=== PATIENT | female | born 1970 | race Caucasian/White ===

== ENCOUNTER → 2017-02-19 | Outpatient (CLI) | payer OTHER ==
[~2017-02-19] MED LIST: AMITRIPTYLINE H25 M2 PO; AMITRIPTYLINE H50 M3 PO; AMITRIPTYLINE H75 M2 PO; ASPIRIN325 PO; LIORESAL 10 MG10 MG PO; MOBIC15 MG PO; NORCO 5-325 TA1 EACH PO; TOPROL XL25 MG PO; TRAMADOL 50 MG50 MG PO; TYLENOL PM EX-1 EACH PO; VITAMIN B-12500 MCG PO; VITAMIN D 5050000 I1 PO; VITAMIN D5000 UNI1 PO; ZANAFLEX4 MG PO; ZESTORETIC 20-1 EAC3 PO; ZOLOFT50 MG PO
--- NOTE | 2017-02-20 08:10 | PAINCON ---
[address] [address] PAIN MANAGEMENT CONSULTATION Name: SON PALM [facility] [id number] Admission: 02/19/17 Attend Phys: Bev James MD Discharge: Date of : 72 Report #: [id number] THIS REPORT FOR: //name// CC: Heber James DATE OF SERVICE: 02/19/2017 FOLLOWUP COMPLAINT: "Here for back pain that is radiating down into my left foot." FOLLOWUP HISTORY: The patient is a 47-year-old female who has been seen in the pain clinic because of lumbar radiculopathy. She has undergone epidural steroid injections. She continues to have pain, which she describes as problematic. She is having pain that is radiating down into her right hip, right leg and involving her foot. She had injections in the past, which were beneficial, but still they did not last as long as she would like for them to. She has had no complications from them in the past. At this juncture, she rates her pain as an 8/10. She finds that the medications are helpful and allow her to engage in activity. She feels that it makes it more "tolerable." She finds that the hydrocodone and tramadol are beneficial. Finds that baclofen and amitriptyline are helpful as well. She rates her pain as an 8/10. PHYSICAL EXAMINATION: Blood pressure 130/84, pulse 107, respiratory rate 16, room air saturation 95%, weight 265 pounds, BMI is 41, height 5 feet 7 inches, temperature is 98.4. HEENT is unremarkable. The patient complains of pain and discomfort in the low back area with some paraspinous muscle tenderness and pain in the right foot. Palpation in the right hip area indicates soreness and tenderness in the area of the trochanteric area. She has some pain and discomfort in the low back area as well. IMPRESSION: 1. Lumbar radiculopathy history with continued discomfort in the L5-S1 nerve root distribution. 2. Myofascial pain and soreness in the right iliac areas and paraspinous muscles. Tenderness in the area of the trochanteric area. 3. L4-L5 disk osteophyte complex with annular bulge. 4. Broad-based annular bulge at L4-L5 causing spinal stenosis. 5. L4-L5 posterior facet and ligamentum flavum hypertrophy. This flattens the anterior thecal sac and creates a relative spinal stenosis. RECOMMENDATIONS: We discussed treatment options with the patient. She does have some pain and discomfort in the trochanteric area. We may consider an injection in the trochanteric bursa on the right. [place] [address] PAIN MANAGEMENT CONSULTATION Name: SON PALM Room: [facility]#: [id number] Admission: 02/19/17 Attend Phys: Bev James MD Discharge: Date of : 72 Report #: [id number] on this side. She also will continue to exercise as much as possible to decrease pain, soreness and discomfort. She will take her medication as prescribed. We again described possible complications associated with long-term use of hydrocodone/opioid medications. They could include addiction tolerance. The patient states that she keeps her medications in a controlled environment. She will also continue with baclofen for muscle spasms and amitriptyline to help with pain as well as improve pain and sleep. She will call us if she has any problems. We would like to thank you for letting us participate in her care. We hope she continues to improve. <ELECTRONICALLY SIGNED> By: Bev James MD 02/20/17 0810 1306 1600N. Robby James MD /[facility]
== END ==
LOC: M.PC 02-03 09:00
DX: M54.16 Radiculopathy, lumbar region (principal); M79.1 Myalgia; M25.78 Osteophyte, vertebrae; M51.26 Other intervertebral disc displacement, lumbar region; M48.061 Spinal stenosis, lumbar region without neurogenic claudication; M46.06 Spinal enthesopathy, lumbar region

== ENCOUNTER → 2017-03-19 | Outpatient (CLI) | payer OTHER ==
--- NOTE | 2017-04-29 08:22 | PAINCON ---
[address] [address] PAIN MANAGEMENT CONSULTATION Name: SON PALM Room: [facility] MartiMariana#: [id number] Admission: 03/19/17 Attend Phys: Bev James MD Discharge: Date of : 72 Report #: [id number] THIS REPORT FOR: //name// CC: EVERETTE James DATE OF SERVICE: 03/19/2017 FOLLOWUP COMPLAINT: Here for medication renewal and "my shoulders and hip are really sore." FOLLOWUP HISTORY: The patient is a 47-year-old female, who has been followed in the pain clinic because of pain and discomfort with lumbar radiculopathy. She states that she has been working with her grandkids. She has been lifting them frequently. She has noticed some pain and discomfort in the lower portion of her right hip, which is problematic. At this juncture, she is having pain in her right shoulder, which is even worse. She is unable to lift her right arm above parallel to the floor. She is unable to comb her hair successfully. 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 She notes that the pain is quite problematic. She continues to use her hydrocodone, which she has been on for her other pain condition. Tramadol is still used, but the two of them are not successful in decreasing the pain and discomfort she has in her shoulder. Pressure over the right shoulder can cause a significant amount of pain and discomfort radiating down into the shoulder area. She continues to work out as much as possible. She has started using vitamin B12 and vitamin D for fibromyalgia. She feels that she would like to have the right shoulder injected. She still has a pain in her right hip, which on occasion causes a cramping sensation and catches. She rates it as a 9/10 at this juncture. ALLERGIES: FENTANYL, SURGICAL GAGE. CURRENT MEDICATIONS: Tylenol Extra Strength, Elavil 75 mg at bedtime, baclofen 10 mg t.i.d., vitamin D3, vitamin B12, [place] 5/325 one p.o. t.i.d., meloxicam 15 mg daily, Zanaflex 4 mg at bedtime, tramadol 50 mg t.i.d. p.r.n. pain. PHYSICAL EXAMINATION: VITAL SIGNS: Blood pressure 134/90, pulse 94, respiratory rate 16, room air saturation 96%, temperature 98.6, height 5 feet 7 inches, weight 263 pounds, BMI is 41. HEENT: Head is atraumatic. NECK: Without JVD or adenopathy. The patient has soreness to palpation in the right trapezius area as well as in the right occipital area. Rotation of her head and bending can increase the pain and discomfort in her neck and shoulder. The patient's affect was appropriate. LUNGS: [place] [address] PAIN MANAGEMENT CONSULTATION Name: SON PALM Room: [facility]#: [id number] Admission: 03/19/17 Attend Phys: Bev James MD Discharge: Date of : 72 Report #: [id number] HEART: Regular rate. Palpation over the right deltoid anterior portion cause pain and discomfort reproduces a significant component of the patient's discomfort. MUSCULOSKELETAL: Alignment is generally within normal limits and no significant kyphosis is noted. Complains of pain and discomfort in the right hip with some limitation in movement, which can cause a worsening and catching sensation in that right hip area. 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 Palpation over the biceps tendon is extremely sensitive. Palpation over the deltoid area is sensitive and reproduces a significant component of the pain and discomfort which she is experiencing. The patient is able to lift her left hand over her head, right hand to horizontal without ability to lift it any higher. Rotation inward and outward of the shoulder can cause some pain and discomfort in the deltoid and shoulder area. IMPRESSION: 1. Right shoulder myofascial pain exacerbated after lifting a child and other activities, which has worsened over the last couple of weeks. 2. Lumbar radicular history in the L5-S1 nerve root distribution and epidural steroids in the past. 3. Right hip pain, may consider an injection in the hip area in the future. 4. L4-L5 disk osteophyte complex with annular bulge. 5. Broad-based annular bulge at L4-L5 causing spinal stenosis. 6. L4-L5 posterior facet and ligamentum flavum hypertrophy. This flattens the anterior thecal sac and creates a relative spinal stenosis. RECOMMENDATIONS: We will proceed with an injection to the right shoulder area. This seems to be the pain that is causing her the most discomfort and rates it overall as a 9/10. She is limited in her ability to engage in activities with his arm. She is unable to raise it over her head. She is unable to lift or work against opposition with that arm because of the pain and discomfort. We will consider an injection in her right hip in the future if needed. The patient will also continue with hydrocodone and tramadol to help with her traditional pain. She will continue with activity to lessen the problems that one gets from fibromyalgia. We explained to her the importance of activities on a regular basis and the use of her current medical regimen. PROCEDURE NOTE: The patient was placed in the sitting position. She was on the bed at 30 degrees. Her right shoulder was sterilely prepped with a chlorhexidine solution. It was allowed to dry. Palpation in the area of the deltoid area reproduced her pain and discomfort. A 25-gauge needle was then advanced into this area. The patient states that the pain was reproduced. Total of 40 mg triamcinolone and 8 mL of 0.25% bupivacaine was injected. The patient tolerated the procedure well. There were no complications. She remained in the Pain Clinic for an appropriate amount [place] [address] PAIN MANAGEMENT CONSULTATION Name: SON PALM Room: [facility]#: [id number] Admission: 03/19/17 Attend Phys: Bev James MD Discharge: Date of : 72 Report #: [id number] up in the future as needed. We would like to thank you for letting us participate in her care. We hope she continues to improve. <ELECTRONICALLY SIGNED> By: Bev James MD 04/29/17 0822 1412 0219N. Robby James MD /nt
== END | disposition home or self-care (01) ==
LOC: M.PC 01:43
DX: M79.1 Myalgia (principal); M25.511 Pain in right shoulder; M54.16 Radiculopathy, lumbar region; M25.551 Pain in right hip; M48.061 Spinal stenosis, lumbar region without neurogenic claudication; M51.36 Other intervertebral disc degeneration, lumbar region; M25.78 Osteophyte, vertebrae; M46.96 Unspecified inflammatory spondylopathy, lumbar region; Z88.8 Allergy status to other drugs, medicaments and biological substances; Z79.891 Long term (current) use of opiate analgesic

== ENCOUNTER → 2017-04-21 | Outpatient (CLI) | payer OTHER ==
--- NOTE | 2017-04-29 08:37 | PAINCON ---
[address] [address] PAIN MANAGEMENT CONSULTATION Name: SON PALM Room: [facility] MartiMariana#: [id number] Admission: 04/21/17 Attend Phys: Bev James MD Discharge: Date of : 72 Report #: [id number] THIS REPORT FOR: //name// CC: Heber James DATE OF SERVICE: 04/21/2017 FOLLOWUP COMPLAINT: "Things are going pretty well. I have had no real changes." FOLLOWUP HISTORY: The patient is a 47-year-old female who has been followed in the pain clinic. As you recall, she has some problems with her right hip, right shoulder as well as the low back. She states that her symptomatology has pretty much remained stable since we saw her last. She has been followed in the pain clinic because of lumbar radiculopathy. She continues to note some pain and discomfort if she lifts. This exacerbates pain and discomfort in her right shoulder. She also has some pain in the right hip. She still has some difficulty combing her hair because of this pain, unable to lift her grandchildren. She continues to work. She finds that the fibromyalgia can still be problematic. She feels that the injection in the shoulder area at the last visit was helpful. Rates her pain as an 8/10 at this juncture. ALLERGIES: FENTANYL, SURGICAL GAGE. CURRENT MEDICATIONS USED: Tylenol Extra Strength, Elavil 75 mg at bedtime, baclofen 10 mg p.o. t.i.d., vitamin D, vitamin B12, [place] 5/325 one p.o. t.i.d. Meloxicam 15 mg daily, Zanaflex 4 mg at bedtime, tramadol 50 mg t.i.d. p.r.n. pain. PAIN CLINIC HISTORY: 1. 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 Height 5 feet 7 inches, weight 266 pounds, BMI is 41. 2. Vital signs: Blood pressure 140/90, heart rate 103, respiratory rate 16, room air saturation 98%, temperature 98.7. 3. Pain intensity 10/02. 4. Fall risk. The patient has not fallen since we saw her last. Has not fallen in the last 3 months. 5. The patient is not on blood thinner. 6. Hypertension. The patient is not being treated for hypertension. 7. Opioid therapy. The patient receives her medications from the pain clinic of hydrocodone 5/325 and has signed a pain clinic contract. Collection for a drug screen, dated 03/14/2015 showed hydrocodone positive in the system in her system, which can corroborates the medication she has been getting. [place] [address] PAIN MANAGEMENT CONSULTATION Name: SON PALM Room: [facility]#: [id number] Admission: 04/21/17 Attend Phys: Bev James MD Discharge: Date of : 72 Report #: [id number] RISK ASSESSMENT TOOL: 1. Pain impact score is 57/70 in regard to general activity, mood, walking ability, work, relationships with others, sleep enjoyment of life. 2. The patient denies use of recreational drugs in her drug screen is clean. 3. Tobacco: The patient denies use of tobacco. 4. Alcoholic beverages. The patient denies frequent use of alcoholic beverages. PHYSICAL EXAMINATION: GENERAL: The patient is a well-developed female, appears her appropriate age. Orientation: The patient is alert and oriented x 3. Affect: The patient's affect is appropriate. HEENT: The patient is normocephalic, atraumatic. Extraocular eye muscles intact. Hearing is within normal limits. No nasal congestion or complaints. Buccal membranes are moist. NECK: Without adenopathy or bruits. LUNGS: Clear to auscultation. The patient has some soreness in the area of the right trapezius as well as some in the occipital areas. Rotation of her arm above her head causes some increased pain and discomfort. Appears somewhat improved over the last visit. Lungs are clear to auscultation. HEART: Regular rate. MUSCULOSKELETAL: Alignment is generally within normal limits without significant kyphosis. The patient continues to complain of some pain and discomfort in the right hip and some limitation in the movement. Muscle strength in the upper extremities is judged to be basically 5/5. Some decreased strength on the right secondary to shoulder pain. Continues to be able to lift her left hand overhead with some pain and discomfort and able to lift her shoulder and right arm to just above the horizon. IMPRESSION: 1. Right shoulder pain, which improved after the last trigger point injection, but still has some problems lifting this and with activities of daily living. 2. Lumbar radicular history in the L5-S1 nerve root distribution and has had epidural steroid injection in the past. 3. Right hip pain, may consider an injection in this area in the past, if needed. 4. L4-L5 disk osteophyte complex with annular bulge. 5. Broad-based annular bulge at L4-L5 causing spinal stenosis. 6. L4-L5 posterior facet and ligamentum flavum hypertrophy. There is flattening of the anterior thecal sac creates a relative spinal stenosis. RECOMMENDATIONS: We discussed treatment options with the patient. We will continue with her current medical regimen. She feels that things overall are going reasonably well. The weather is warming up. She continues to monitor her right shoulder and try to keep from exacerbating [place] [address] PAIN MANAGEMENT CONSULTATION Name: SON PALM Room: [facility]#: [id number] Admission: 04/21/17 Attend Phys: Bev Jmaes MD Discharge: Date of : 72 Report #: [id number] feels that her medications continue to be helpful. She is keeping her medications in a guarded area. She appears to be taking the medication as prescribed. Her drug screen was positive for the correct items. We will continue with her current medication regimen. A script for renewal of her meloxicam, tizanidine, hydrocodone, tramadol, amitriptyline and baclofen were rewritten. DICTATION ENDS HERE <ELECTRONICALLY SIGNED> By: Bev James MD 04/29/17 0837 1329 [id number]. Robby James MD /[facility]
== END ==
LOC: M.PC 04-16 09:20
DX: M48.061 Spinal stenosis, lumbar region without neurogenic claudication (principal); M54.16 Radiculopathy, lumbar region; M25.78 Osteophyte, vertebrae; M46.06 Spinal enthesopathy, lumbar region

== ENCOUNTER → 2017-05-19 | Outpatient (CLI) | payer OTHER ==
--- NOTE | 2017-05-27 08:21 | CON ---
[address] [address] CONSULTATION Name: SON PALM Room: [facility] SHERRI Burr.#: [id number] Admission: 05/19/17 Attend Phys: Bev James MD Discharge: Date of : 72 Report #: [id number] THIS REPORT FOR: //name// CC: Heber James DATE OF SERVICE: 05/19/2017 FOLLOWUP COMPLAINT: Here for medication renewal. FOLLOWUP HISTORY: The patient is a 47-year-old female who has been followed in the pain clinic because of chronic pain. As you recall, she has some problems with her right hip, right shoulder as well as the low back. She continues to have symptoms with pain and discomfort. She has been followed in the pain clinic because of lumbar radiculopathy. She continues to have pain, particularly if she lifts items. She notes that her pain is worse with certain activities. Has pain in her right shoulder. There is pain in her right hip. She has difficulty climbing because of this pain. Has difficulty lifting her grandchildren. She continues to work. She has fibromyalgia. She would like to have her medications renewed. Overall, she feels that her medications are helpful and she rates her pain as 8/10 today. She would like to continue with their use. She is taking them as prescribed. No problems with confusion. ALLERGIES: FENTANYL, SURGICAL GAGE. HOME MEDICATIONS: Include Tylenol Extra Strength, Elavil 25 mg at bedtime, baclofen 10 mg 1 p.o. t.i.d., vitamin D, vitamin B12, [place] 5/325 one p.o. t.i.d., Meloxicam 15 mg daily, Zanaflex 4 mg at bedtime, tramadol 50 mg 1 p.o. t.i.d. for pain PAIN CLINIC ASSESSMENT: 1. The patient has some osteoarthritic changes involving her shoulder as well as some hip well. 2. Height 5 feet 7 inches, weight 266 pounds, BMI is 41. 3. Vital signs: Blood pressure is 161/109, heart rate 97, respiratory rate 16, room air saturation is 97%, temperature 98.7. Pain intensity is an 8/10. 4. The patient has not fallen in the last 3 months. 5. The patient is not on a blood thinner. 6. Hypertension. The patient is not being treated for hypertension. 7. Opioid therapy. The patient is receiving medications through the pain clinic for hydrocodone 5/325. 8. Risk assessment tool; impact 57/70. 9. The patient denies use of recreational drugs. 10. The patient denies use of tobacco. 11. [place] [address] CONSULTATION Name: SON PALM Room: [facility]#: [id number] Admission: 05/19/17 Attend Phys: Bev James MD Discharge: Date of : 72 Report #: [id number] PHYSICAL EXAMINATION: GENERAL: The patient is a well-developed female. She appears her stated age. She is oriented x 3. AFFECT: The patient's affect is appropriate. HEENT: The patient is normocephalic, atraumatic. Extraocular eye muscles intact. Hearing is within normal limits. No nasal congestion or complaints. Mucous membranes moist. NECK: Without adenopathy or bruits. CHEST: Lungs clear to auscultation. SKIN: The patient has some pain in the right trapezius area as well as in the occipital areas. Rotation of her arm above her head caused some increased pain and discomfort. Appears somewhat improved from the last visit. LUNGS: Clear to auscultation. HEART: Regular rate and effort. MUSCULOSKELETAL: The patient's alignment is within normal limits without significant kyphosis. The patient continues to have pain and discomfort in the right hip as well as some limitation in motion. Muscle strength in the upper extremities is judged to be 5/5. She has decreased strength in the right secondary to right shoulder pain. She continues to lift her hand above her head with some pain and discomfort and able to lift her shoulder and right arm above the horizon. IMPRESSION: 1. Right shoulder pain with improvement after last trigger point injections. 2. Lumbar radiculopathy with history L5-S1 nerve root distribution and had an epidural steroid injection in the past. 3. Right hip pain. May consider injection in the future. 4. L4-L5 disk osteophyte complex with annular bulge. 5. Broad-based annular bulge at L4-L5 causing spinal stenosis. 6. L4-L5 posterior facet ligamentum flavum hypertrophy. There is flat anterior thecal sac relative with spinal stenosis. RECOMMENDATIONS: We will continue with the patient's current medical regimen. A script for her medications has been written. She will follow up in the future as needed. She will call us if she has any problems with her medications. She will keep her medicine in a guarded area. We would like to thank you for letting us participate in her care. We hope she continues to improve. <ELECTRONICALLY SIGNED> By: Bev James MD 05/27/17 0821 2100 0509N. Robby James MD /PMT
== END ==
LOC: M.PC 01:46
DX: M25.78 Osteophyte, vertebrae (principal); M54.16 Radiculopathy, lumbar region; M48.061 Spinal stenosis, lumbar region without neurogenic claudication; M46.06 Spinal enthesopathy, lumbar region; M25.511 Pain in right shoulder; M25.551 Pain in right hip

== ENCOUNTER → 2017-06-18 | Outpatient (CLI) | payer OTHER ==
--- NOTE | 2017-06-24 08:18 | PAINCON ---
[address] [address] PAIN MANAGEMENT CONSULTATION Name: SON PALM Room: [facility] SUNIL MartiMelissa.#: [id number] Admission: 06/18/17 Attend Phys: Bev James MD Discharge: Date of : 72 Report #: [id number] THIS REPORT FOR: //name// CC: Heber James DATE OF SERVICE: 06/18/2017 FOLLOWUP COMPLAINT: Here for medication renewal. FOLLOWUP HISTORY: The patient is a 47-year-old female. As you recall, she has been followed in the pain clinic because problems involving her right hip as well as some shoulder problems and discomfort in her low back. She continues to glean benefit from her current medication regimen of baclofen, [place], meloxicam and Zanaflex. She notes that her pain becomes more problematic when she engages in some activities of daily living such as walking, standing, sitting, going up and down stairs, bending and lifting and has noted some improvement with use of her medications, heat, cold and rest. She has returned today for renewal of her medications. She rates her pain as a 9/10 today. The weather has changed and she has noticed an increased amount of discomfort. She has moved into her daughter's house. She and her are relocating. Hopefully, this will be their last move. As a result of all this added activity and stress, she has noted worsening of her pain. ALLERGIES: F[place]ANYL, SURGICAL GAGE. CURRENT MEDICATIONS: Tylenol Extra Strength, Elavil 75 mg at bedtime, baclofen 10 mg p.o. t.i.d., vitamin D, vitamin B12, [place] 5/325 one p.o. t.i.d., Meloxicam 15 mg daily, Zanaflex 4 mg at bedtime, tramadol 50 mg t.i.d. p.r.n. pain. PAIN CLINIC HISTORY: 1. The patient does have osteoarthritis involving her shoulder, hip areas. 2. Height 5 feet 7 inches, weight 267 pounds, BMI is 41. 3. Vital Signs: Blood pressure 151/102, heart rate 120, respiratory rate 16, room air saturation 97%, temperature 99.6. 4. Pain score. The patient rates her pain as a 9/10. 5. Fall. The patient has not fallen in the last 3 months. 6. Blood thinner. The patient is not on a blood thinner. 7. Hypertension. The patient is not being treated for hypertension. 8. Opioid therapy greater than 6 weeks. The patient is on a contract with the Pain Clinic, is to get her medications only from 1 source. 9. Risk assessment tool. 10. Functional assessment tool. 11. Recreational drug use. The patient denies [place] [address] PAIN MANAGEMENT CONSULTATION Name: SON PALM Room: [facility]#: [id number] Admission: 06/18/17 Attend Phys: Bev James MD Discharge: Date of : 72 Report #: [id number] 12. Tobacco. The patient denies use of tobacco. 13. Alcohol use. The patient denies use of alcoholic beverages PHYSICAL EXAMINATION: GENERAL: The patient is a well-developed white female. She appears her stated age. She is alert and oriented x 3. Her affect is appropriate. Speech is fluent. HEENT: Normocephalic, atraumatic. Extraocular eye muscles intact. Sclerae nonicteric Hearing is within normal limits. Nasal congestion is not problematic. Mucous membranes are moist. NECK: Without adenopathy or bruits. CHEST: Clear to auscultation. The patient has some discomfort in the right trapezius area and in the occipital areas. Rotation of her arms above her head can cause some increased pain and discomfort. LUNGS: Clear to auscultation. HEART: Regular rate. MUSCULOSKELETAL: Musculature alignment is generally within normal limits without significant kyphosis. The patient sometimes complains of pain and discomfort in her right hip and some limitations in movement. Muscle strength in the upper extremities, judged to be 5/5. Some decreased strength in the right secondary to shoulder pain. The patient continues to have pain and discomfort when she lifts her left hand overhead. IMPRESSION: 1. Right shoulder pain with improvement after trigger point injections, but continues to have pain and discomfort in the shoulder girdle area. 2. Lumbar radicular history with a L5-S1 nerve root distribution. The patient has had epidural steroid injections in the past. 3. Right hip pain. May consider injection in this area in the future as needed. 4. L4-L5 disk osteophyte complex with annular bulge. 5. Broad based annular bulge at L4-L5 causing spinal stenosis. 6. L4-L5 posterior facet and ligamentum flavum hypertrophy. There is flattening of the anterior thecal sac and creating a relative spinal stenosis. RECOMMENDATIONS: We have discussed treatment options with the patient. We will continue with her current medications. We will continue to pursue a conservative approach. We have discussed the use of opioid medications. The patient has been watching the news and is aware of the conversation regarding opioid medications in chronic pain. She feels that her medications are helpful. She keeps her medications guarded. Feels that they continued to enable her to [address] [address] PAIN MANAGEMENT CONSULTATION Name: NÉSTORSON Room: [facility] SHERRI Butt#: [id number] Admission: 06/18/17 Attend Phys: Bev James MD Discharge: Date of : 72 Report #: [id number] engage in activities, she would not be able to without their use. She would like to continue with the medications. <ELECTRONICALLY SIGNED> By: Bev James MD 06/24/17817 1308 192N. Robby James MD /PMT
== END ==
LOC: M.PC 06-16 09:40
DX: M25.511 Pain in right shoulder (principal); M54.16 Radiculopathy, lumbar region; M25.551 Pain in right hip; Z88.5 Allergy status to narcotic agent; Z88.8 Allergy status to other drugs, medicaments and biological substances

== ENCOUNTER → 2017-07-21 | Outpatient (CLI) | payer OTHER ==
--- NOTE | 2017-08-05 13:59 | PAINCON ---
[address] [address] PAIN MANAGEMENT CONSULTATION Name: SON PALM Room: [facility] SHERRI Filomena#: [id number] Admission: 07/21/17 Attend Phys: Bev James MD Discharge: Date of : 72 Report #: [id number] THIS REPORT FOR: //name// CC: Heber James DATE OF SERVICE: 07/21/2017 FOLLOWUP COMPLAINT: "We are hoping to move out of our daughter's house soon, ours is about finished." FOLLOWUP HISTORY: The patient is a 47-year-old female, who has been followed in the pain clinic. As you recall, she has problems with her right hip, shoulder as well as her low back. She finds that her medications continue to be helpful. She is living with her daughter and with her grandkids. She states that her house is almost finished. She has been quite active and notes that that exacerbates her pain and discomfort. Still feels that the baclofen, [place], meloxicam as well as Zanaflex are efficacious and would like to continue with them. She does not have any problems with that. Notes that climbing stairs and other activities can worsen her discomfort. Overall, things are going reasonably well. The patient would like to have her medications renewed. States that she keeps her medications in a controlled environment given that she is living with her daughter and have small kids around. Feels that the medications continue to be helpful. Has had some worsening of pain and discomfort with the changes in the air pressure associated with constant weather changes at this juncture. Weather pattern has changed in the last few days, temperature has been about 100 degrees. ALLERGIES: FENTANYL AND SURGICAL GAGE. RECOMMENDATION: Tylenol Extra Strength, Elavil 75 mg at bedtime, baclofen 10 mg p.o. t.i.d., vitamin D, vitamin B12, [place] 5/325 one p.o. t.i.d., Meloxicam 15 mg daily, Zanaflex 4 mg at bedtime, and tramadol 50 mg t.i.d. p.r.n. pain. PAIN CLINIC ASSESSMENT: 1. The patient does have osteoarthritis involving her shoulders, hips. 2. Height 5 feet 7 inches, weight 270 pounds. BMI is 42. 3. Vital signs: Blood pressure 146/91, heart rate 104, respiratory rate 16, room air saturation 94%, temperature 99.0. Pain intensity 8/10. 4. Fall risk: The patient has not fallen in the last 3 months. 5. Blood thinner: The patient is not on a blood thinner. 6. Hypertension. The patient has not been treated for hypertension. 7. Opioid therapy greater than 6 weeks. The patient is on an opioid contract with the pain clinic and gets her medication from one source. 8. [place] [address] PAIN MANAGEMENT CONSULTATION Name: SON PALM Room: [facility]#: [id number] Admission: 07/21/17 Attend Phys: Bev James MD Discharge: Date of : 71 Report #: [id number] 9. Functional assessment tool. 10. Recreational drug use: The patient denies use of recreational drugs. 11. Tobacco: The patient denies use of tobacco. 12. Alcohol: The patient denies use of alcoholic beverages. PHYSICAL EXAMINATION: GENERAL: The patient is a well-developed white female, appears her stated age. She is alert and oriented x 3. Her affect is appropriate. Speech is fluent. HEENT: Normocephalic, atraumatic. Extraocular eye muscles intact. Sclerae nonicteric. Hearing is within normal limits. Nasal mucosa is moist. NECK: Without adenopathy or bruits. CHEST: Clear to auscultation. The patient has some discomfort in her right trapezius area and in the occipital areas. Rotation of her arms above her head caused some increased pain and discomfort. LUNGS: Clear to auscultation. HEART: Regular rate. S1, S2. ABDOMEN: Nontender. MUSCULOSKELETAL: Generally within normal limits without significant kyphosis, scoliosis or lordosis. The patient has pain, which limits her motion secondary to the right hip pain. Muscle strength in the upper extremity is judged to be 5/5. Some decreased strength in the right shoulder secondary to pain. Continues to have pain and discomfort when she lifts her hands over her head. IMPRESSION: 1. Right shoulder pain with improvements after trigger point injections in the past. Some discomfort in the right shoulder girdle area. 2. Lumbar radiculopathy, history with an L5-S1 nerve root distribution. 3. Right hip pain. 4. L4-L5 disk osteophyte complex with annular bulge. 5. Broad-based annular bulge at L4-L5 causing spinal stenosis. 6. L4-L5 posterior facet and ligamentum flavum hypertrophy. There is flattening of the anterior thecal sac, creating a relative spinal stenosis. RECOMMENDATIONS: We discussed treatment options with the patient. We will continue with her current medications. A script for her medications has been provided. She will continue with tramadol 50 mg t.i.d., hydrocodone 5/325 one p.o. t.i.d., amitriptyline 30 mg 1 tablet or 75 mg at bedtime and baclofen 10 mg 1 p.o. t.i.d. The patient also has been given a script for Mobic and tizanidine 4 mg. She will call us if she has any problems with her medications. Hopefully, she starts to feel better after she moves out of her daughter's house. States that the bathroom is upstairs. [place] [address] PAIN MANAGEMENT CONSULTATION Name: SON PALM Room: [facility]#: [id number] Admission: 07/21/17 Attend Phys: Bev James MD Discharge: Date of : 71 Report #: [id number] own house, which is on 1 level. We would like to thank you for letting us participate in her care. We hope she continues to improve. <ELECTRONICALLY SIGNED> By: Bev James MD 08/05/17 1359 [id number] 1839N. Robby James MD /[facility]
== END ==
LOC: M.PC 07-16 09:40
DX: M54.16 Radiculopathy, lumbar region (principal); M48.061 Spinal stenosis, lumbar region without neurogenic claudication; M25.78 Osteophyte, vertebrae; M46.06 Spinal enthesopathy, lumbar region; M25.551 Pain in right hip; M25.511 Pain in right shoulder

== ENCOUNTER → 2017-08-25 | Outpatient (CLI) | payer OTHER ==
--- NOTE | 2017-08-27 08:42 | PAINCON ---
[address] [address] PAIN MANAGEMENT CONSULTATION Name: SON PALM Room: [facility] SUNIL Leno.#: [id number] Admission: 08/25/17 Attend Phys: Bev James MD Discharge: Date of : 72 Report #: [id number] THIS REPORT FOR: //name// CC: Heber James DATE OF SERVICE: 08/25/2017 FOLLOWUP COMPLAINT: "Here for medications. I am still having some low back, right hip and shoulder pain." FOLLOWUP HISTORY: The patient is a 47-year-old female who has been seen in the pain clinic because of chronic pain involving her back, shoulder, hip. She has noted some escalation of her pain and discomfort. She and her are moving. They have been packing and boxing items. She has noted some increased pain and discomfort in the right shoulder area. In the past, she has undergone trigger point injection and noted improvement. She returns today indicating that her pain continues to be problematic. It involves her right arm with some numbness, tingling. Finds that it is more uncomfortable with activities of daily living secondary to the increased use with her moving. Rates her pain as an 8/10. Things that exacerbate her discomfort are activities, walking, sitting, standing, going from a sitting to a standing position, lifting and bending. Feels that factors that help are continued use of her medications, use of hot and cold modalities as well as rest. ALLERGIES: FENTANYL AND SURGICAL GAGE. MEDICATIONS: Tylenol Extra Strength, Elavil 75 mg at bedtime, baclofen 10 mg p.o. t.i.d., vitamin D, vitamin B12, [place] 5/325 one p.o. t.i.d., Meloxicam 15 mg, Zanaflex 4 mg at bedtime and tramadol 50 mg t.i.d. p.r.n. pain. PAIN CLINIC ASSESSMENT: 1. The patient does have osteoarthritic changes involving her shoulders, hips. Right shoulder is more problematic today. 2. Height 5 feet 7 inches, weight 266 pounds, BMI is 41. 3. Vital signs: Blood pressure 114/82, heart rate 106, respiratory rate 16, room air saturation 95%, temperature 98.8. 4. Pain risk/intensity 10/02. 5. Fall risk. The patient has not fallen in the last 3 months. 6. Blood thinner. The patient is not on the blood thinning medication. 7. Hypertension. The patient is not being treated for hypertension. 8. Opioid therapy greater than 6 weeks. The patient is on an opioid contract with the pain clinic and gets her medication from one source. 9. Risk assessment tool. 10. Functional assessment tool. 11. Recreational drug use. The patient denies [place] [address] PAIN MANAGEMENT CONSULTATION Name: SON PALM Room: [facility]#: [id number] Admission: 08/25/17 Attend Phys: Bev James MD Discharge: Date of : 71 Report #: [id number] 12. Tobacco: The patient denies use of tobacco. 13. Alcohol: The patient denies use of alcoholic beverages. PHYSICAL EXAMINATION: GENERAL: The patient is a well-developed, well-nourished white female, appears her stated age. She is alert and oriented x 3. Her affect is appropriate. Speech is fluent. HEENT: Normocephalic, atraumatic. Extraocular eye muscles intact. Sclerae nonicteric. Hearing is within normal limits. Nasal mucosa is moist. NECK: Without adenopathy or bruits. CHEST: Clear to auscultation. The patient does have some discomfort in the right shoulder as well as palpation in the right acromioclavicular area. Palpation does reproduce her discomfort. HEART: Regular rate. S1, S2. ABDOMEN: Nontender. MUSCULOSKELETAL: Generally within normal limits without significant kyphosis, scoliosis or lordosis. The patient has pain that limits her movement in her right hip. Also, has muscle strength in the upper area judged to be 4+/5 in the right shoulder secondary to pain. IMPRESSION: 1. Right shoulder pain, which has improved in the past after a trigger point injection. Has noted some return and would like to proceed with another injection today. 2. Lumbar radicular history with a L5-S1 nerve root distribution. 3. Right hip pain. 4. L4-L5 disk osteophyte complex with annular bulge. 5. Broad-based annular bulge at L4-L5 causing spinal stenosis. 6. L4-L5 posterior facet and ligamentum flavum hypertrophy. There is flattening of the anterior thecal sac, creating a relative spinal stenosis. RECOMMENDATIONS: We discussed the treatment options with the patient. Risks and benefits of a trigger point injection to the affected right shoulder were discussed. They include infection, improvement in pain, no improvement in pain or worsening of the pain. The patient elects to proceed. A script for her medications have been written. They include tramadol, hydrocodone, ____, amitriptyline, baclofen, Mobic, tizanidine. She has elected to proceed with the procedure. PROCEDURE NOTE: The patient was taken to the procedure area. She was assisted in getting on the table. Her shoulder was sterilely prepped with a chlorhexidine solution and allowed to dry. Palpation in the area of the deltoid near the acromioclavicular area was evaluated. The patient states that there was a definite trigger point in this area. A 25-gauge needle was then advanced into the area. A reproduction of the pain was noted. A total of 40 mg of triamcinolone and 8 mL of 0.25% bupivacaine was injected[place] [address] PAIN MANAGEMENT CONSULTATION Name: SON PALM Room: [facility]#: [id number] Admission: 08/25/17 Attend Phys: Bev James MD Discharge: Date of : 72 Report #: [id number] the procedure well. She was taken to the recovery room where she remained for an appropriate amount of time. She will follow up in the future as needed. We would like to thank you for letting us participate in her care. We hope she continues to improve. <ELECTRONICALLY SIGNED> By: Bev James MD 08/27/17 0842 1502 [id number]. Robby James MD /AXEL
== END | disposition home or self-care (01) ==
LOC: M.PC 08-18 10:00
DX: M79.1 Myalgia (principal); M19.011 Primary osteoarthritis, right shoulder; Z79.899 Other long term (current) drug therapy; M51.16 Intervertebral disc disorders with radiculopathy, lumbar region; Z98.890 Other specified postprocedural states; F11.20 Opioid dependence, uncomplicated; I10 Essential (primary) hypertension; Z68.41 Body mass index [BMI] 40.0-44.9, adult; Z88.8 Allergy status to other drugs, medicaments and biological substances

== ENCOUNTER → 2017-10-15 | Outpatient (CLI) | payer OTHER ==
--- NOTE | 2017-10-21 16:41 | PAINCON ---
[address] [address] PAIN MANAGEMENT CONSULTATION Name: SON PALM Room: [facility].Romero.#: [id number] Admission: 10/15/17 Attend Phys: Bev James MD Discharge: Date of : 72 Report #: [id number] THIS REPORT FOR: //name// CC: Heber James DATE OF SERVICE: 10/15/2017 PRIMARY CARE PHYSICIAN: Heber Garcia MD CHIEF COMPLAINT: "Going to have surgery on my right shoulder." FOLLOWUP HISTORY: The patient is a 47-year-old female who has been followed in the pain clinic. She has a number of pain areas. One includes her back, hip and her right shoulder. She has had injections in her right shoulder because of the pain and discomfort. She recently has seen an orthopedic surgeon. She is contemplating right shoulder arthroscopy in the next week. It is felt that she has suffered from some arthritic changes as well as some bursitis. She feels overall that her medications are helpful. Rates her pain as an 8/10. She is having no complications from use of her medications. Feels that the [place], tramadol, meloxicam and Zanaflex are helpful. She is not having any GI complaints at this juncture. She feels that baclofen and amitriptyline are helpful as well. Pain is worse with walking, sitting, standing and other activities such as bending and twisting. Cold and heat on her shoulder can be helpful. ALLERGIES: FENTANYL, SURGICAL GAGE. CURRENT MEDICATIONS: Tylenol Extra Strength, Elavil 75 mg at bedtime, baclofen 10 mg p.o. t.i.d., vitamin D, vitamin B12, [place] 5/325 one p.o. t.i.d., Meloxicam 15 mg, Zanaflex 4 mg at bedtime, tramadol 50 mg t.i.d. PAIN CLINIC ASSESSMENT: 1. The patient has osteoarthritic changes in her shoulder, some discomfort in her hips. Right shoulder remains problematic. 2. Height 5 feet 7 inches, weight 262 pounds, BMI 41.4. 3. Vital signs: Blood pressure 148/76, heart rate 86, respiratory rate 16, room air saturation is 98.4. Pain score 8/10. 4. Fall risk. The patient has not fallen in the last 3 months. 5. Blood thinner. The patient is not on a blood thinning medication. 6. Hypertension. The patient has not been treated for hypertension. 7. Opioid therapy greater than 6 weeks. The patient receives tramadol medication from the pain clinic. 8. Risk assessment tool. 9. [place] [address] PAIN MANAGEMENT CONSULTATION Name: SON PALM Room: [facility]#: [id number] Admission: 10/15/17 Attend Phys: Bev James MD Discharge: Date of : 72 Report #: [id number] 10. Recreational drug use. The patient denies use of recreational drugs. 11. Tobacco: The patient denies use of tobacco. 12. Alcohol: The patient denies use of alcoholic beverages. PHYSICAL EXAMINATION: GENERAL: The patient is a well-developed, well-nourished, white female. Appears her stated age. She is alert and oriented x 3. Her affect is appropriate. Speech is fluent. HEENT: Normocephalic, atraumatic. Extraocular eye muscles intact. Sclerae nonicteric. Hearing is within normal limits. Mucous membranes are moist. NECK: Without adenopathy or bruits. CHEST: Clear to auscultation. The patient does have some discomfort in her right shoulder. Some decreased range of motion. Pain in the area of the right acromioclavicular area. Palpation causes discomfort. HEART: Regular rate. S1, S2. ABDOMEN: Nontender. MUSCULOSKELETAL: Without significant scoliosis, kyphosis or lordosis. The patient does have some limitation of movement in her right hip. Muscle strength is judged to be 5/5 on the left side, 4+/5 in the right shoulder area secondary to pain. IMPRESSION: 1. Right shoulder pain, which is improved after trigger point injections, but continued to be problematic. The patient is contemplating undergoing surgery. 2. Lumbar radicular pain history at L5-S1. 3. Right hip pain. 4. L4-L5 disk osteophyte complex with annular bulge. 5. Broad-based annular bulge at L4-L5 causing spinal stenosis. 6. L4-L5 posterior facet and ligamentum flavum hypertrophy. There is flattening of the anterior thecal sac, creating a relative spinal stenosis. RECOMMENDATIONS: We discussed treatment options with the patient. We will continue with her current medical regimen. A script for all of her medications of tramadol, meloxicam, Narcan, amitriptyline and baclofen have been renewed. The patient will follow up in the near future as needed. The patient states that she is going to undergo surgery on her right shoulder in the next few weeks. Hopefully, she will notice an improvement in her pain and quality of life. We would like to thank you for letting us participate in her care. We hope she continues to improve. <ELECTRONICALLY SIGNED> By: Bev James MD 10/21/17 7171 1232 [id number]. Robby James MD /[facility]
== END ==
LOC: M.PC 09-22 05:16
DX: M48.061 Spinal stenosis, lumbar region without neurogenic claudication (principal); M25.78 Osteophyte, vertebrae; M25.511 Pain in right shoulder; M25.551 Pain in right hip; M54.5 Low back pain

== ENCOUNTER → 2017-11-12 | Outpatient (CLI) | payer OTHER ==
--- NOTE | 2017-12-07 10:00 | PAINCON ---
[address] [place] [address] PAIN MANAGEMENT CONSULTATION Name: SON PALM Room: [facility] SHERRI KiddMariana#: [id number] Admission: 11/12/17 Attend Phys: Bev James MD Discharge: Date of : 72 Report #: [id number] THIS REPORT FOR: //name// CC: Heber James DATE OF SERVICE: 11/12/2017 FOLLOWUP COMPLAINT: Here for medication renewal. I have had surgery on my right shoulder. The tendons has been torn. FOLLOWUP HISTORY: The patient is a 47-year-old female who has been followed in the pain clinic. As you recall, she has some problems with her back, hip and has had particularly difficulty with her right shoulder. She states that she underwent a right shoulder surgery recently. It was told that there is some pathology in her shoulder. She had more arthritic changes than they had expected. She also developed a blood clot in her right arm. She has had some swelling in this area. Things seem to be improving. Has pain in her shoulder and has limited ability to abduct her shoulder to horizontal with the floor. She states that she continues to work at moving it. We discussed possibility of a frozen shoulder. She states that she continues to use her shoulder on a regular basis. She rates her pain as a 9/10 at this point. She would like to increase her tramadol from t.i.d. to q.i.d. She feels that would be helpful. She has had no complication from her medications. She feels that they continued to be beneficial at this time. ALLERGIES: FENTANYL, SURGICAL GAGE. MEDICATIONS: Tylenol Extra Strength, Elavil 75 mg at bedtime, baclofen 10 mg t.i.d., vitamin D, vitamin B12, [place] 5/325 one p.o. t.i.d., Meloxicam 15 mg, Zanaflex 4 mg at bedtime, Tramadol 50 mg t.i.d. PAIN CLINIC ASSESSMENT: 1. The patient has some arthritic changes/osteoarthritic changes in her right shoulder. Has recently had shoulder surgery. 2. Height 5 feet 7 inches, weight 265 pounds, BMI is 41. 3. Vital signs: Blood pressure 138/94, heart rate is 60, respiratory rate 16, room air saturation 96%, temperature 98.7. 4. Pain score 9/10. 5. Fall risk. The patient has not fallen in the last 3 months. 6. Blood thinner. The patient is not on a blood thinning medication. 7. History of hypertension. The patient is being treated for hypertension. 8. Opioid therapy greater than 6 weeks. The patient has received medication to the pain clinic. 9. [place] [address] PAIN MANAGEMENT CONSULTATION Name: SON PALM Room: [facility]#: [id number] Admission: 11/12/17 Attend Phys: Bev James MD Discharge: Date of : 72 Report #: [id number] 10. Recreational drug use: The patient denies use of recreational drugs. 11. Functional assessment tool. 12. Tobacco: The patient denies use of tobacco. 13. Alcohol: The patient denies use of alcoholic beverages. PHYSICAL EXAMINATION: GENERAL: The patient is a well-developed, well-nourished white female. Appears of stated age. She is alert and oriented x 3. She is slightly obese. Speech is fluent. HEENT: Normocephalic, atraumatic. Extraocular eye muscles intact. Sclerae nonicteric. Mucous membranes moist. Hearing is within normal limits. NECK: Without adenopathy or bruits. The patient does have some pain and discomfort in the right shoulder. She is unable to abduct shoulder greater than horizontal. Has some limited ability to lift her arm overhead because of pain and discomfort. Overall, she feels that things are improving since a recent surgery. HEART: Regular rate. S1, S2. ABDOMEN: Nontender. MUSCULOSKELETAL: Without significant scoliosis, kyphosis or lordosis. The patient has some limitations in the movement in her right hip. Has muscle strength judged to be 5/5 on the left lower extremity. She has muscle strength as 4+/5 for the right shoulder. She states that she sometimes wears an arm sling. Feels that the blood clot in the right arm is improving. IMPRESSION: Right shoulder pain, which is improving since this surgery. The patient states that there was a tendon that was cut out and was not able to be repaired. The patient feels that her medications of tramadol are helpful. She would like to increase from 50 mg t.i.d. to 50 mg q.i.d. I think this is reasonable. RECOMMENDATIONS: She will continue with the meloxicam medication as well as Zanaflex. Hydrocodone 5 mg one p.o. t.i.d. has been reissued. The patient will also continue with the amitriptyline at night. She has had no problem with sleeping or any untoward reactions from its use. We would like to thank you for letting us participate in her care. We hope she continues to improve. <ELECTRONICALLY SIGNED> By: Bev James MD 12/07/17 [id number]. Robby James MD /AXEL
== END ==
LOC: M.PC 01:46
DX: M25.511 Pain in right shoulder (principal)

== ENCOUNTER → 2017-12-10 | Outpatient (CLI) | payer OTHER ==
--- NOTE | 2018-01-06 16:08 | PAINCON ---
[address] [address] PAIN MANAGEMENT CONSULTATION Name: SON PALM [id number] Admission: 12/10/17 Attend Phys: Bev James MD Discharge: Date of : 72 Report #: [id number] THIS REPORT FOR: //name// CC: Heber James DATE OF SERVICE: 12/10/2017 CHIEF COMPLAINT: Trigger points in the back. HISTORY OF PRESENT ILLNESS: The patient is a 47-year-old female who has been followed in the Pain Clinic for some time. Suffers from problems involving her low back, as well as pain up in the shoulders. She recently underwent surgery on her right shoulder. She was told that there was some damage. Some of the tendons were unable to be repaired. At this point, she has still been having difficulty an increase in the range of motion. She is now scheduled to go to physical therapy. She had arthritis as well as some bursitis involving the right shoulder. She has pain in her knee. She also has some back pain and is having discomfort in the lower portion of the back. Forward bending, left and right lateral movement as well as like pressure in the area of her low back can significantly improve and decrease her pain and discomfort. She rates it as an 8/10. MEDICATIONS: She continues to use Elavil, baclofen, [place], meloxicam, Zanaflex and tramadol to help control the discomfort. ALLERGIES: FENTANYL, SURGICAL GAGE. CURRENT MEDICATIONS: Tylenol Extra Strength, Elavil 75 mg at bedtime, baclofen 10 mg t.i.d., vitamin D, vitamin B12, [place] 5/325 one p.o. t.i.d., Meloxicam 15 mg, Zanaflex 4 mg at bedtime, tramadol 50 mg t.i.d. PAIN CLINIC ASSESSMENT/PQRS: 1. The patient does have arthritic changes involving her right shoulder, which has recently been treated with findings of arthritis and bursitis as a torn tendon. 2. Height 5 feet 7 inches, weight 269 pounds, BMI is 42. 3. Vital signs: Blood pressure 151/65, heart rate 95, respiratory rate 18, room air saturation 95%. Temperature was 98.3. 4. Pain intensity 10/02. 5. Fall risk. The patient has not fallen in the last 3 months. 6. Blood thinner. The patient is not on a blood thinning medication. 7. Hypertension. The patient is being treated for hypertension. 8. Opiate therapy greater than 6 weeks. The patient receives her medications to him through one source, the Pain Clinic. 9. [place] [address] PAIN MANAGEMENT CONSULTATION Name: SON PALM Room: [facility]#: [id number] Admission: 12/10/17 Attend Phys: Bev James MD Discharge: Date of : 72 Report #: [id number] 10. Functional assessment tool. 11. Recreational drug use. The patient denies use of recreational drugs. 12. Tobacco: The patient denies use of tobacco. 13. Alcohol: The patient denies use of alcoholic beverages. PHYSICAL EXAMINATION: GENERAL: The patient is a well-developed, well-nourished white female, appears her stated age. She is alert and oriented x 3. Her affect is appropriate. Speech is fluent. HEENT: Normocephalic, atraumatic. Extraocular eye muscles intact. Sclerae nonicteric. Mucous membranes are moist. Hearing is within normal limits. NECK: Without adenopathy or bruits. The patient does have some pain and discomfort in the neck. She has some pain in the right shoulder area. She carries her right arm in hanging in a dependent position. She is unable to lift it the horizon. Complains of pain and discomfort deep down in the joint. HEART: Regular rate. S1, S2. ABDOMEN: Nontender. Bowel sounds present. MUSCULOSKELETAL: Without scoliosis, kyphosis or lordosis. The patient has pain and discomfort in her right hip. She has pain, which is quite dramatic in the left and right posterior superior iliac spine area. Palpation in these areas cause the patient to jump and vocalize secondary to the pain. Muscle strength to the lower extremity judged to be 5/5 for the major muscle groups. The patient feels that the blood clots she had in her arm has improved on the right side. IMPRESSION: 1. Myofascial pain, low back area, in the left and right posterior superior iliac spine area near the gluteus marbella and latissimus dorsi. 2. Recent right shoulder with limited motion. The patient undergoing physical therapy. 3. Myofascial pain. 4. Lumbar radiculopathy history in the L5-S1 nerve root distribution. 5. Right hip pain. May consider some time in the future an injection in the hip. 6. L4-L5 disk osteophyte complex with annular bulge. 7. Broad-based annular bulge, L4-L5 causing spinal stenosis. 8. L4-L5 posterior facet and ligamentum flavum hypertrophy. There is flattening of the anterior thecal sac, creating a relative spinal stenosis. RECOMMENDATIONS: We discussed the treatment options with the patient. At this juncture, she feels the myofascial trigger points are quite problematic. She would like to proceed with a trigger point injection in these areas. Risks and benefits of the procedure were discussed. They include possibility of infection, increased muscle soreness, bleeding, worsening of pain, no improvement in pain, nerve damage and the [place] [address] PAIN MANAGEMENT CONSULTATION Name: SON PALM Room: [facility] SUNIL Filomena#: [id number] Admission: 12/10/17 Attend Phys: Bev James MD Discharge: Date of : 72 Report #: [id number] PROCEDURE NOTE: The patient was taken to the procedure area. She was assisted in getting on the table. She sat on the table in a perpendicular position. A chair was placed under her feet. Back was sterilely prepped with a Betadine solution with a chlorhexidine solution. The patient lean forward. A 25-gauge needle was then advanced to the area of discomfort. Once we noted a trigger point on the right side, the patient states this was the area of discomfort. Aspiration was negative. A total of 10 mL of 0.5% bupivacaine and 80 mg Depo-Medrol was injected on the right hand side. The patient tolerated the procedure well. There were no complications. The contralateral left side was treated in a like fashion. The second trigger point was injected with a 25-gauge needle. After appropriate placement, a total of 80 mg Depo-Medrol plus 10 mL of 0.5% bupivacaine was injected. The areas were left and right area and the latissimus area of the latissimus dorsi and gluteus marbella near the left and the second on the right posterior superior iliac spine. The patient tolerated the procedure well. There were no complications. She remained in the Pain Clinic for an appropriate amount of time. She will follow up in the future as needed. She will call us if she has any concerns. We would like to thank you for letting us participate in her care. We hope she continues to improve. <ELECTRONICALLY SIGNED> By: Bev James MD 01/06/18 [id number] [id number]. Robby James MD /nt
== END | disposition home or self-care (01) ==
LOC: M.PC 05:29
DX: M79.18 Myalgia, other site (principal); M54.16 Radiculopathy, lumbar region; M25.551 Pain in right hip; M25.78 Osteophyte, vertebrae; M46.96 Unspecified inflammatory spondylopathy, lumbar region; Z79.899 Other long term (current) drug therapy; Z88.8 Allergy status to other drugs, medicaments and biological substances; Z79.82 Long term (current) use of aspirin

== ENCOUNTER → 2018-01-07 | Outpatient (CLI) | payer OTHER ==
--- NOTE | ~2018-01-07 | PAINCON ---
[address] [address] PAIN MANAGEMENT CONSULTATION Name: SON PALM Room: [facility] SUNIL Filomena#: [id number] Admission: 01/07/18 Attend Phys: Bev James MD Discharge: Date of : 72 Report #: [id number] THIS REPORT FOR: //name// CC: Heber James DATE OF SERVICE: 01/07/2018 FOLLOWUP COMPLAINT: "Trigger points were quite helpful. I would like to have another injection." HISTORY: The patient is a 47-year-old female who has been followed in the pain clinic because of chronic pain involving her low back. She also has some pain and discomfort in the upper neck area. She has returned today because of pain in the lumbar radicular area. She has undergone trigger point injections and noted some improvement. She feels that the pain has worsened secondary to the incursion of a cold weather spell. The temperature is about 28 degrees. She rates her pain as a 9/10 at this juncture. Finds that her medications of tramadol, [place], and amitriptyline as well as baclofen continued to be helpful. Feels that she is about 50% improved. At this juncture, she has returned to the pain clinic with a desire to undergo a trigger point injection to the low back area. She noticed that that was quite beneficial and would like to have another injection. ALLERGIES: FENTANYL, SURGICAL GAGE. CURRENT MEDICATIONS: Elavil 75 mg at bedtime, baclofen 10 mg t.i.d., tramadol 50 mg q.i.d., Mobic 15 mg daily, Zanaflex 4 mg at bedtime. PAIN CLINIC ASSESSMENT AND PQRS: 1. The patient does have arthritic changes involving her right shoulder. She recently been treated and found to have arthritis, bursitis and a torn tendon. 2. She is not being treated for rheumatoid arthritis. 3. Height 5 feet 7 inches, weight 269 pounds, BMI 42. 4. Vital signs: Blood pressure 135/105, heart rate 98, respiratory rate 16, room air saturation 95%, temperature 98.0. 5. Pain intensity 9/10. 6. Fall history: The patient has not fallen in the last 3 months. 7. Blood thinner. The patient is not on a blood thinning medication. 8. Hypertension. The patient is being treated for hypertension. 9. Opioid therapy greater than 6 weeks. The patient receives her medications from one source, the pain clinic. 10. Risk assessment tool, low for opioid use. 11. Functional assessment tool. 12. Recreational drug use. The patient denies use of recreational drugs. 13. Tobacco: [place] [address] PAIN MANAGEMENT CONSULTATION Name: SON PALM Room: [facility]#: [id number] Admission: 01/07/18 Attend Phys: Bev James MD Discharge: Date of : 72 Report #: [id number] 14. Alcohol: The patient denies use of alcoholic beverages. PHYSICAL EXAMINATION: GENERAL: The patient is a well-developed, well-nourished white female. Appears her stated age. She is alert and oriented x 3. Her affect is appropriate. Speech is fluent. HEENT: Normocephalic, atraumatic. Extraocular eye muscles intact. Sclerae nonicteric. Mucous membranes are moist. Hearing is within normal limits. NECK: Without adenopathy or bruits. The patient does have some pain and discomfort in her neck. Has some pain and discomfort in the right shoulder area. Carries her right arm in somewhat of a dependent position. Unable to lift it above the horizon. Continues to have some pain and discomfort deep in the joint. HEART: Regular rate. S1, S2. ABDOMEN: Nontender. Bowel sounds present. MUSCULOSKELETAL: Without significant scoliosis, kyphosis or lordosis. The patient has pain and discomfort in the right hip. Has some pain and discomfort in the low back area near the posterior superior iliac spine on the left as well as the right. Palpation in these areas does reproduce a jump sign and the patient complains of pain and discomfort. Muscle strength in the lower extremities is judged to be 5/5 for the major muscle groups. The patient would like to proceed with an injection in the trigger point areas. IMPRESSION: 1. Myofascial pain, low back area, left and right posterior superior iliac spine area near the gluteus marbella and latissimus dorsi. 2. Right shoulder pain with limited motion, undergoing physical therapy. 3. Myofascial pain. 4. Lumbar radicular pain history in the L5-S1 nerve root distribution. 5. Right hip pain. May consider an injection in the future. 6. L4-L5 disk osteophyte complex with annular bulge. 7. Broad-based annular bulge, L4-L5 causing spinal stenosis. 8. L4-L5 posterior facet and ligamentum flavum hypertrophy. There is flattening of the anterior thecal sac, creating a relative spinal stenosis. RECOMMENDATIONS: We discussed treatment options with the patient. Risks and benefits of a trigger point injection were discussed. Possible complications of the procedure, which could include but are not limited to infection, worsening of pain, no improvement in pain, nerve trauma and the patient elects to proceed. PROCEDURE NOTE: The patient was taken to the procedure area. She was assisted in getting on the examination table. Her back was sterilely prepped with a chlorhexidine solution. A chair was placed under her feet. The patient lean forward as though she were to tie her shoes. Her back was then sterilely prepped and the trigger point identified on the left and the right side. Near the right posterior superior iliac spine area and near [place] [address] PAIN MANAGEMENT CONSULTATION Name: SON PALM Room: [facility]#: [id number] Admission: 01/07/18 Attend Phys: Bev James MD Discharge: Date of : 72 Report #: [id number] latissimus dorsi, a trigger point was noted. A 25-gauge needle was then advanced into the area. There were no complaints of nerve irritation or leg pain. Aspiration was negative. A total of 80 mg of Depo-Medrol and 8 mL of 0.5% bupivacaine was injected. The patient tolerated the right side injection well. The left side was treated in a like fashion. The gluteus marbella/latissimus dorsi area was noted. A trigger point was noted. A 25-gauge needle was then advanced into the area of the discomfort. Aspiration was negative. There was no complaint of nerve irritation. A total of 8 mL of 0.5% bupivacaine and 80 mg of Depo-Medrol was injected. The patient tolerated the procedure well. There were no complications. She remained in the Pain Clinic for an appropriate amount of time. She will follow up in the future as needed. The patient's pain was 7/10 at the time of discharge. A script for meloxicam 15 mg 1 p.o. daily, tizanidine 4 mg 1 p.o. at bedtime, amitriptyline 75 mg 1 p.o. at bedtime, baclofen 10 mg 1 p.o. t.i.d., hydrocodone 5/325 one p.o. t.i.d., total of 90 were dispensed, tramadol 50 mg one p.o. q. 4 hours p.r.n. were written. The patient will call us if she has any concerns. We would like to thank you for letting us participate in her care. We hope she continues to improve. By: [id number]. Robby James MD /AXEL
== END | disposition home or self-care (01) ==
LOC: M.PC 05:38
DX: M79.18 Myalgia, other site (principal); M25.511 Pain in right shoulder; M54.16 Radiculopathy, lumbar region; M25.551 Pain in right hip; M25.78 Osteophyte, vertebrae; M48.061 Spinal stenosis, lumbar region without neurogenic claudication; M46.96 Unspecified inflammatory spondylopathy, lumbar region; Z88.8 Allergy status to other drugs, medicaments and biological substances; Z79.82 Long term (current) use of aspirin; Z79.899 Other long term (current) drug therapy; Z79.891 Long term (current) use of opiate analgesic

== ENCOUNTER → 2018-02-11 | Outpatient (CLI) | payer OTHER ==
--- NOTE | ~2018-02-11 | PAINCON ---
[address] [address] PAIN MANAGEMENT CONSULTATION Name: SON PALM Room: [facility] MartiMelissa.#: [id number] Admission: 02/11/18 Attend Phys: Bev James MD Discharge: Date of : 72 Report #: [id number] THIS REPORT FOR: //name// CC: Heber James DATE OF SERVICE: 02/11/2018 CHIEF COMPLAINT: Here for trigger points and renewal of medication. HISTORY OF PRESENT ILLNESS: The patient is a 47-year-old female who has been followed in the Pain Clinic. She has significant problems with myofascial pain involving her low back area. She also has some upper neck and arm discomfort. She returns today noting that she has noted increased pain in her low back area. It is [place] time. Last night, she was doing quite a bit of wrapping of presents. Stress of the time of year as well as activity has increased her low back pain. She would like to proceed with trigger point injections to the back area. She has noticed that those have been quite effective over the last few months, greater than 50% improvement after the injection, and would like to proceed with that again today. She rates her pain as an 8/10. She has not fallen since we saw her last. She feels that her medications of tramadol, [place], amitriptyline, and baclofen continue to be helpful and would like to continue their use as well. ALLERGIES: FENTANYL AND SURGICAL GAGE. CURRENT MEDICATIONS: Elavil 75 mg at bedtime, baclofen 10 mg, tramadol 50 mg q.i.d., Mobic 15 mg, Zanaflex 4 mg at bedtime. PAIN CLINIC ASSESSMENT AND PQRS: 1. The patient does have some arthritic changes involving her right shoulder. She has recently been treated and found to have arthritis and bursitis at a torn tendon. She is not being treated for rheumatoid arthritis. 2. Height 5 feet 7 inches, weight 268 pounds, BMI is 42. 3. Pain intensity: 8/10. 4. Vital signs: Blood pressure 126/78, heart rate 101, respiratory rate 16, room air saturation 97%, temperature 98.3. 5. Fall history: The patient has not fallen in the last 3 months. 6. Blood thinner: The patient is not on a blood thinning medication. 7. Hypertension: The patient is being treated for hypertension. 8. Opioids greater than 6 weeks: The patient is not being treated with opioid medications other than tramadol. 9. Risk assessment tool: Low for opioid use. 10. Functional assessment tool. 11. Recreational drug use: The patient [place] [address] PAIN MANAGEMENT CONSULTATION Name: SON PALM Room: [facility]#: [id number] Admission: 02/11/18 Attend Phys: Bev James MD Discharge: Date of : 72 Report #: [id number] 12. Tobacco: The patient denies use of tobacco. 13. Alcohol: The patient denies use of alcoholic beverages. PHYSICAL EXAMINATION: GENERAL: The patient is a well-developed, well-nourished white female. She appears her stated age. She is alert and oriented x 3. Affect is appropriate. Speech is fluent. HEENT: Normocephalic, atraumatic. Extraocular eye muscles intact. Sclerae nonicteric. Mucous membranes are moist. NECK: Without adenopathy or JVD. She has some pain and discomfort involving the right shoulder area with some limitation in movement. She is unable to lift her arm above the horizon. She continues to complain of pain deep in the joint on the right side, HEART: Regular rate. S1, S2. ABDOMEN: Nontender. Bowel sounds present. MUSCULOSKELETAL: Without significant scoliosis, kyphosis or lordosis. The patient has pain in her right hip. She has pain and discomfort in the low back areas in the left and right paraspinous areas. Forward bending, left and right lateral rotation, and lumbar extension, all increased pain and discomfort in this area. Palpation in this area causes the patient to jump vigorously and complain vocally with palpation of the trigger points in the low back area. Major muscle groups in the lower extremity is judged to be 5/5 for the major muscle groups. IMPRESSION: 1. Myofascial pain with trigger points in the low back area in the left and the right posterior iliac area. 2. Right shoulder pain, has been with limited motion. The patient continues to undergo physical therapy. 3. Myofascial pain, low back area and upper back area. 4. Lumbar radicular pain with history of L5-S1 nerve root distribution discomfort. 5. Right hip pain. May consider injection of the hip in the future. 6. L4-L5 disk osteophyte complex with annular bulge. 7. Broad-based annular bulge at L4-L5 causing spinal stenosis. 8. L4-L5 posterior facet and ligamentum flavum hypertrophy. There is flattening of the anterior thecal sac creating a relative spinal stenosis. RECOMMENDATIONS: We discussed treatment options with the patient. We will continue with the patient's current medications of tramadol and hydrocodone. She feels that amitriptyline continues to be helpful and we will continue with that medication. Meloxicam has also been rewritten. We discussed the treatment with a local anesthetic and steroid for the trigger point injection in the low back area. This in the past has been quite beneficial and efficacious. The [place] [address] PAIN MANAGEMENT CONSULTATION Name: NÉSTORSON Room: [facility]#: [id number] Admission: 02/11/18 Attend Phys: Bev James MD Discharge: Date of : 72 Report #: [id number] PROCEDURE NOTE: The patient was taken to the procedure area. She was assisted in getting on the examination table. She sat on the table perpendicular to the table. A chair was placed under her feet. She leaned forward. Her back was sterilely prepped with a chlorhexidine solution and allowed to dry. Palpation in the area of the left posterior superior iliac spine and the right posterior superior iliac spine area, both caused the patient to jump with palpation of the trigger points. A 25-gauge needle on the left side was then advanced into the area of the left posterior superior iliac spine near the gluteus marbella and latissimus dorsi. The patient states that this did reproduce her pain. Aspiration was negative. A total of 8 mL of 0.5% bupivacaine and 80 mg Depo-Medrol was injected. The right contralateral side was treated in the like fashion. A 25-gauge needle was advanced. Trigger point was noted. Aspiration was negative. An 8 mL 0.5% bupivacaine with 80 mg Depo-Medrol was injected. The patient tolerated the procedure well. She remained in the Pain Clinic for an appropriate amount of time. She will follow up in the future as needed. We would like to thank you for letting us participate in her care. We hope she continues to improve. By: [id number]. Robby James MD /nt
== END | disposition home or self-care (01) ==
LOC: M.PC 02-04 10:40
DX: M79.18 Myalgia, other site (principal); M48.061 Spinal stenosis, lumbar region without neurogenic claudication; M46.06 Spinal enthesopathy, lumbar region; M19.90 Unspecified osteoarthritis, unspecified site; M71.9 Bursopathy, unspecified; I10 Essential (primary) hypertension; M54.16 Radiculopathy, lumbar region; Z88.8 Allergy status to other drugs, medicaments and biological substances; Z79.899 Other long term (current) drug therapy; Z79.82 Long term (current) use of aspirin

== ENCOUNTER → 2018-03-11 | Outpatient (CLI) | payer OTHER ==
--- NOTE | ~2018-03-11 | PAINCON ---
[address] [address] PAIN MANAGEMENT CONSULTATION Name: SON PALM Room: [facility] SUN[facility] Filomena#: [id number] Admission: 03/11/18 Attend Phys: Bev James MD Discharge: Date of : 72 Report #: [id number] THIS REPORT FOR: //name// CC: Heber James DATE OF SERVICE: 03/11/2018 CHIEF COMPLAINT: Pain in the low back area, which helped with the injections and here for medication renewal. FOLLOWUP HISTORY: The patient is a 48-year-old female who has been followed in the pain clinic. As you recall, she has some problems with her shoulders. She has some osteoarthritic changes. Recently, she had surgery on the right shoulder. She states that there was ____. She was told that she has some arthritic changes with some spurring in there, which was helped with the surgery. She is now engaging in activities of rehabilitation to help with range of motion and increased strength and help decrease the pain and discomfort. Overall, she feels her medications of tramadol and Elavil are beneficial, meloxicam and tizanidine are beneficial as well. She would like to have these medications renewed. She notes some increased pain and discomfort in the low back area. Injections in the trigger point areas in the past have been effective. She would like to proceed with an injection in the left and right trigger point area in the lower portion of her back today as well. ALLERGIES: FENTANYL AND SURGICAL GAGE. CURRENT MEDICATIONS: Elavil 75 mg at bedtime, baclofen 10 mg, tramadol 50 mg q.i.d., Mobic 15 mg, and Zanaflex 4 mg at bedtime. PAIN CLINIC ASSESSMENT/PQRS: 1. The patient does have osteoarthritic changes involving her right shoulder. Recently, she had arthroscopic surgery in this area. She is not being treated for rheumatoid arthritis. 2. Height 5 feet 7 inches, weight 270 pounds, BMI 42. 3. Blood pressure 117/63, heart rate 110, respiratory rate 16, room air saturation 96%, temperature 98.3. 4. Pain intensity 10. 5. Fall history: The patient has not fallen in the last 3 months. 6. Blood thinner. The patient is not on a blood thinning medication. 7. Hypertension. The patient is being treated for hypertension. 8. Opiates greater than 6 weeks. The patient is receiving medications, hydrocodone and tramadol through the pain clinic, [facility]. 9. Risk assessment tool, low for opioid use. 10. Functional assessment tool. 11. Recreational drug use. The patient [place] [address] PAIN MANAGEMENT CONSULTATION Name: SON PALM Room: [facility]#: [id number] Admission: 03/11/18 Attend Phys: Bev James MD Discharge: Date of : 72 Report #: [id number] 12. Tobacco: The patient denies use of tobacco. 13. Alcohol: The patient denies use of alcoholic beverages. PHYSICAL EXAMINATION: GENERAL: The patient is well-developed, well-nourished white female. She appears her stated age. She is alert and oriented x 3. Affect is appropriate. Speech is fluent. HEENT: Normocephalic, atraumatic. Extraocular eye muscles intact. Sclerae nonicteric. Mucous membranes moist. NECK: Without adenopathy or JVD. The patient has some soreness involving the right shoulder. Some limitation of motion secondary to soreness and recent surgery. HEART: Regular rate. S1, S2. ABDOMEN: Nontender. Bowel sounds present. MUSCULOSKELETAL: Without significant scoliosis, kyphosis or lordosis. The patient has pain and discomfort in her right hip as well has pain in the lower portion of her back, left as well as in the right paraspinous area at about L5-S1. Palpation of the trigger points are extremely sore in the low back area and caused the patient to jump. Muscle strength in the lower extremity, judged to be 5/5 for the major muscle groups. IMPRESSION: 1. Myofascial pain with trigger points in the low back area, left and right posterior iliac paraspinous muscle area. 2. Right shoulder pain, which has improved since the surgery, but continues to be problematic with soreness as a result of surgery. The patient is undergoing physical therapy. 3. Myofascial pain, lower portion of her back and upper back area. 4. Lumbar radicular pain with history of L5-S1 nerve root pain. 5. Right hip pain, may consider injection to the hip in the future. 6. L4-L5 disk osteophyte complex with annular bulge. 7. Broad-based annular bulge at L4-L5 causing spinal stenosis. 8. L4-L5 posterior facet and ligamentum flavum hypertrophy. There is flattening of the anterior thecal sac creating a relative spinal stenosis. RECOMMENDATIONS: We discussed treatment options with the patient. Risks and benefits of trigger point injections were discussed. The patient feels that the injections were beneficial in the past. She had no complications from them. The weather has changed, notes some increased pain and discomfort. We will consider trigger point injections. Risks and benefits of the procedure, which could include but are not limited to infection, worsening of pain, no improvement in pain, nerve damage, bleeding were discussed. The patient elects to proceed. PROCEDURE NOTE: The patient was assisted in the examination room to get on the table. She sat perpendicular to the bed. A chair [place] [address] PAIN MANAGEMENT CONSULTATION Name: CHERYL PALMBERLY Room: [facility]#: [id number] Admission: 03/11/18 Attend Phys: Bev James MD Discharge: Date of : 72 Report #: [id number] support. Her back was sterilely prepped with a chlorhexidine solution. It was allowed to dry. Trigger points are noted in the left as well as the right posterior superior iliac spine areas. A 25-gauge needle was then advanced in the area of the right posterior superior iliac spine area. The patient states that this did reproduce the pain and discomfort associated with a trigger point. A 25-gauge needle was then advanced into the area near the gluteus marbella and latissimus dorsi. A reproduction of the trigger point was noted. Aspiration of the area was negative with a 25-gauge needle. A total of 8 mL of 0.5% bupivacaine and 80 mg Depo-Medrol was injected. The patient tolerated the procedure well. There were no complications. The contralateral side was treated in a like fashion. Trigger point noted. A 25-gauge needle injected into the area of the trigger point. Aspiration was negative. Total of 8 mL of 0.5% bupivacaine with 80 mg Depo-Medrol was injected. The patient tolerated the procedure well. There were no complications. She remained in the Pain Clinic for an appropriate amount of time. She will follow up in the future as needed. We would like to thank you for letting us participate in her care. We hope she continues to improve. By: [id number]. Robby James MD /nt
== END | disposition home or self-care (01) ==
LOC: M.PC 08:28
DX: M79.18 Myalgia, other site (principal); M25.511 Pain in right shoulder; M54.16 Radiculopathy, lumbar region; M25.551 Pain in right hip; M25.78 Osteophyte, vertebrae; M48.061 Spinal stenosis, lumbar region without neurogenic claudication; M46.96 Unspecified inflammatory spondylopathy, lumbar region; I10 Essential (primary) hypertension; Z88.8 Allergy status to other drugs, medicaments and biological substances; Z79.82 Long term (current) use of aspirin; Z79.899 Other long term (current) drug therapy; Z98.890 Other specified postprocedural states

== ENCOUNTER → 2018-04-08 | Outpatient (CLI) | payer OTHER ==
--- NOTE | 2018-04-13 09:15 | PAINCON ---
[address] [address] PAIN MANAGEMENT CONSULTATION Name: SON PALM [id number] Admission: 04/08/18 Attend Phys: Bev James MD Discharge: Date of : 72 Report #: [id number] THIS REPORT FOR: //name// CC: Heber James DATE OF SERVICE: 04/08/2018 CHIEF COMPLAINT: "Pain in the low back, right shoulder and right hip. I would like to get another injection. Trigger point in my back." HISTORY: The patient is a 48-year-old female who has been followed in the pain clinic because of chronic pain. Has pain in her shoulders. Has osteoarthritic changes in these areas. Also, has had surgery on her right shoulder. She continues to have some spurring problems in the shoulder area. Overall, feels that her medications of tramadol and Elavil are helpful. She also has pain in the lower portion of her back with trigger points in the low back area. Palpation in the low back area in the left and right paraspinous area are extremely sore to palpation. She would like to proceed with an injection. They were quite helpful in the past. She rates her pain as 8/10 at this juncture. Decreased to 4-6 after the last trigger point injections. ALLERGIES: FENTANYL AND SURGICAL GAGE. MEDICATIONS: Elavil 75 mg at bedtime, baclofen 10 mg, tramadol 50 mg q.i.d., Mobic 15 mg, Zanaflex 4 mg at bedtime. PAIN CLINIC ASSESSMENT/PQRS: 1. The patient does have osteoarthritic changes in her right shoulder. She is not being treated for rheumatoid arthritis. 2. Height 5 feet 7 inches, weight 261 pounds, BMI is 41. 3. Vital signs: Blood pressure 140/81, heart rate 111, respiratory rate 16, room air saturation 95%, temperature 98.9. Pain intensity 8/10 today in the low back area. 4. Fall history: The patient has not fallen in the last 3 months. 5. Blood thinner. The patient is not on a blood thinning medication. 6. Opioids greater than 6 weeks. The patient receives medications from the pain clinic of meloxicam, tizanidine, amitriptyline and baclofen. Also, finds that tramadol is helpful. 7. Risk assessment tool, low for opioid use. 8. Functional assessment tool. 9. Recreational drug use. The patient denies use of recreational drugs. 10. Tobacco: The patient denies use of tobacco. 11. Alcohol: The patient denies use of alcoholic beverages. PHYSICAL EXAMINATION: [place] [address] PAIN MANAGEMENT CONSULTATION Name: SON PALM Room: [facility]#: [id number] Admission: 04/08/18 Attend Phys: Bev James MD Discharge: Date of : 72 Report #: [id number] GENERAL: The patient is a well-developed, well-nourished, somewhat obese white female. She is alert and oriented x 3. Affect is appropriate. Speech is fluent. HEENT: Normocephalic, atraumatic. Extraocular eye muscles are intact. NECK: Without adenopathy or JVD. The patient has some soreness in the right shoulder area. Decreased range of motion because of this. HEART: Regular rate. S1, S2. ABDOMEN: Nontender. Bowel sounds present. MUSCULOSKELETAL: Without significant scoliosis, kyphosis or lordosis. EXTREMITIES: Upper extremity muscle strength is judged to be 5-/5 on the left and 5-/5 on the right. The patient has pain and discomfort in the midline area and in the left and right paraspinous area at the L4-L5 paraspinous muscles. Slight pressure in this area does cause the patient to recoil from pain and discomfort and focalize discomfort. There is a positive jump sign. IMPRESSION: 1. Myofascial pain trigger point in the lower left and right area improved with trigger point injection in the past. 2. Right shoulder pain, which has improved since surgery, but continues to be problematic with soreness. The patient continues with physical therapy. 3. Myofascial pain, lower portion of her back. Left and right low back area in the L5-S1 paraspinous area. 4. Right hip pain. May consider injections in the future. 5. L4-L5 disk osteophyte complex with annular bulge. 6. Broad-based annular bulge, L4-L5 causing spinal stenosis. 7. L4-L5 posterior facet ligamentum flavum hypertrophy. 8. There is flattening of the anterior thecal sac with relative spinal stenosis. RECOMMENDATIONS: We discussed treatment options with the patient. Risks and benefits of a trigger point injection were again reviewed. They could include, but are not limited to infection, worsening of pain, bleeding, worsening of situation because of nerve damage or trauma. At this juncture, the patient has gleaned benefits from them. She would like to proceed. PROCEDURE NOTE: The patient was taken to the procedure area. She was then assisted in getting on the bed. She was placed perpendicular to the bed. A chair was placed under her feet to support them. She leaned forward as though she retired in her shoe. Her back was sterilely prepped with a Betadine solution. It was allowed to dry. Left and the right side were both prepared. A 25-gauge needle was then advanced into the left side. After the trigger point in the left paraspinous area near the gluteus marbella and latissimus dorsi were identified. Aspiration was negative. The patient did not complain of nerve trauma. A total of 40 mg Depo-Medrol and 20 mg triamcinolone was injected. The right side was treated in a like fashion. The trigger point was noted at the gluteus marbella and latissimus dorsi. A 25-gauge needle [place] [address] PAIN MANAGEMENT CONSULTATION Name: SON PALM Room: [facility]#: [id number] Admission: 04/08/18 Attend Phys: Bev James MD Discharge: Date of : 72 Report #: [id number] area. The patient states this reproduced a trigger point pain. Aspiration was negative. A total of 8 mL of 0.5% bupivacaine with 40 mg Depo-Medrol and 20 mg triamcinolone was injected. The patient tolerated the procedure well. There were no complications. She remained in the Pain Clinic for an appropriate amount of time. She will call us if she has any concerns. We would like to thank you for letting us participate in her care. We hope she continues to improve. <ELECTRONICALLY SIGNED> By: Bev James MD 04/13/18 0915 [id number]. Robby James MD /PMT
== END | disposition home or self-care (01) ==
LOC: M.PC 05:25
DX: M79.18 Myalgia, other site (principal); M25.511 Pain in right shoulder; M25.551 Pain in right hip; M25.70 Osteophyte, unspecified joint; M48.061 Spinal stenosis, lumbar region without neurogenic claudication; E66.9 Obesity, unspecified; Z88.8 Allergy status to other drugs, medicaments and biological substances; Z79.899 Other long term (current) drug therapy; Z68.41 Body mass index [BMI] 40.0-44.9, adult; Z79.82 Long term (current) use of aspirin

== ENCOUNTER → 2018-05-20 | Outpatient (CLI) | payer OTHER ==
--- NOTE | ~2018-05-20 | PAINCON ---
[address] [address] PAIN MANAGEMENT CONSULTATION Name: SON PALM Room: [facility] MartiEugeneRomero.#: [id number] Admission: 05/20/18 Attend Phys: Bev James MD Discharge: Date of : 72 Report #: [id number] THIS REPORT FOR: //name// CC: Heber James DATE OF SERVICE: 05/20/2018 CHIEF COMPLAINT: Here for medication renewal. HISTORY: The patient is a 48-year-old female who has been followed in the pain clinic. As you recall, she has quite a bit of pain involving the right shoulder. She did have right shoulder surgery. States that they removed some of the scar tissue and things up in her shoulder. Still is having some problems with it. Has pain in her right hip as well as pain down the low back area. Overall, she has continued to have pain and rates it as an 8/10. Tries to stay as active as possible. Activities such as the cold weather, walking, sitting, standing, climbing stairs, going from a sitting to a standing position, and bending and lifting are problematic. She has used hot as well as cold packs. Medications are beneficial. Overall, things are going reasonably well with her current medical regimen and she would like to have the medications renewed. She has had no complications from their use. Keeps her medication in a guarded area. She is aware that medications can become less effective as time goes by because of development of tolerance. ALLERGIES: FENTANYL AND SURGICAL GAGE. CURRENT MEDICATIONS: Elavil 75 mg at bedtime, baclofen 10 mg, tramadol 50 mg q.i.d., Mobic 15 mg, and Zanaflex 4 mg at bedtime. PAIN CLINIC ASSESSMENT AND PQRS: 1. The patient has some osteoarthritic change in her right shoulder. She is not being treated for rheumatoid arthritis. 2. Height 5 feet 7 inches, weight 266 pounds, BMI is 41.7. 3. Vital signs: Blood pressure 124/78, heart rate 100, respiratory rate 16, room air saturation 96%, and temperature 97.8. 4. Pain intensity 10. 5. Fall history: The patient has not fallen in the last 3 months. 6. Blood thinner. The patient is not on a blood thinning medication. 7. Hypertension. The patient is being treated for hypertension. 8. Opioid greater than 6 weeks. The patient receives her medication from one source, the pain clinic. 9. Risk assessment tool, low for opioid medication. 10. Functional assessment tool. 11. Recreational drug use. The patient denies use of recreational drugs. 12. Tobacco: The [place] [address] PAIN MANAGEMENT CONSULTATION Name: SON PALM Room: [facility]#: [id number] Admission: 05/20/18 Attend Phys: Bev James MD Discharge: Date of : 72 Report #: [id number] 13. Alcohol: The patient denies use of alcoholic beverages. PHYSICAL EXAMINATION: GENERAL: The patient is a well-developed, well-nourished white female. Appears her stated age. She is alert and oriented x 3. Her affect is appropriate. Speech is fluent. Her daughter is present. HEENT: Normocephalic, atraumatic. Extraocular eye muscles intact. Sclerae nonicteric. Mucous membranes are moist. NECK: Without adenopathy or JVD. LUNGS: Clear to auscultation. ABDOMEN: Nontender. Bowel sounds present. MUSCULOSKELETAL: Without significant scoliosis, kyphosis, or lordosis. EXTREMITIES: Upper muscle extremity judged to be 4+/5 on the right and 5-/5 on the left. The patient has some decreased range of motion in her right shoulder since the surgery. Complains of pain and discomfort in the right paraspinous area near the L4-L5 area where the trigger points have been noted. Still has some soreness in this area. IMPRESSION: 1. Myofascial pain treated with trigger point injection in the past with some improvement. 2. Right shoulder pain, status post surgery to "clean up the shoulder area." 3. Myofascial pain, left and right paraspinus muscle L5-S1. 4. Right hip pain. May consider injection in the future. 5. L4-L5 disk osteophyte complex with annular bulge. 6. Broad-based annular bulge, L4-L5 causing spinal stenosis. 7. L4-L5 posterior facet - ligamentum flavum hypertrophy. 8. Flattening of the anterior thecal sac with relative spinal stenosis. RECOMMENDATIONS: We discussed the treatment with her current medical regimen. We discussed the use of tramadol, hydrocodone, and meloxicam. Discussed the reasoning for tizanidine and amitriptyline. The patient will continue with these medications. A script for these medications have been written. The patient will continue to keep her opioid medications in a locked area. She will call us if she has any concerns. A script for amitriptyline 75 mg 1 p.o. b.i.d., baclofen 10 mg t.i.d., and hydrocodone 5 mg 1 p.o. t.i.d. have been written. The patient will also continue with meloxicam and tizanidine. We would like to thank you for letting us participate in her care. We hope she continues to improve. By: [id number]. Robby James MD /nt
== END ==
LOC: M.PC 09:00
DX: M51.26 Other intervertebral disc displacement, lumbar region (principal); M25.78 Osteophyte, vertebrae; M48.061 Spinal stenosis, lumbar region without neurogenic claudication; M25.511 Pain in right shoulder; M25.551 Pain in right hip; M79.18 Myalgia, other site; Z79.899 Other long term (current) drug therapy

== ENCOUNTER → 2018-06-17 | Outpatient (CLI) | payer OTHER ==
--- NOTE | ~2018-06-17 | PAINCON ---
[address] [address] PAIN MANAGEMENT CONSULTATION Name: SON PALM Room: [facility] SHERRI Filomena#: [id number] Admission: 06/17/18 Attend Phys: Bev James MD Discharge: Date of : 72 Report #: [id number] THIS REPORT FOR: //name// CC: Heber James DATE OF SERVICE: 06/17/2018 CHIEF COMPLAINT: Right shoulder pain and low back pain. HISTORY: The patient is a 48-year-old female who has chronic pain. As you recall, she has pain involving her right shoulder. She has had surgery on the shoulder. She states that on 3 occasions she has undergone injections of cortisone into the affected shoulder. She has scar tissue in the area. She continues to exercise and try to keep good active. She did develop frozen shoulder syndrome in the past. She feels that her medications continue to be helpful in keeping the pain tolerable. She is having some pain in the lower portion of her back. She has undergone trigger point injections in this area and had found them to be beneficial. She has been on a keto diet and has lost 18 pounds. She has noticed continued pain with activities of daily living, sitting, standing, walking, lifting and bending. Folding and doing laundry can be problematic as well because of her shoulder pain. Has used her medications, heat and cold to help decrease some of discomfort. She has returned today for renewal of her medications and possibility of trigger point injections in the future. ALLERGIES: FENTANYL AND SURGICAL GAGE. CURRENT MEDICATIONS: Elavil 75 mg at bedtime, baclofen 10 mg, tramadol 50 mg, Mobic 15 mg, Zanaflex 4 mg at bedtime. PAIN CLINIC ASSESSMENT/PQRS: 1. The patient has arthritic changes in her right shoulder. She has not been treated for rheumatoid arthritis. 2. Height 5 feet 7 inches, weight 248 pounds, BMI is 39. 3. Vital Signs: Blood pressure 114/77, heart rate 81, respiratory rate 16, room air saturation 97%, temperature 98.4. 4. Pain intensity 10/02. 5. Fall risk. The patient has not fallen in the last 3 months. 6. Blood thinner. The patient is not on a blood thinning medication. 7. Hypertension. The patient is being treated for hypertension. 8. Opioids greater than 6 weeks. The patient receives her medications from one source, the Pain Clinic. 9. Risk assessment tool, low for opioid use. 10. Functional assessment tool. 11. Recreational drug use. The patient denies [place] [address] PAIN MANAGEMENT CONSULTATION Name: SON PALM Room: [facility]#: [id number] Admission: 06/17/18 Attend Phys: Bev James MD Discharge: Date of : 72 Report #: [id number] 12. Tobacco: The patient denies use of tobacco. 13. Alcohol: The patient denies use of alcoholic beverages. PHYSICAL EXAMINATION: GENERAL: The patient is a well-developed, well-nourished white female. Appears her stated age. She is alert and oriented x 3. Affect is appropriate. Speech is fluent. HEENT: Normocephalic, atraumatic. Extraocular eye muscles are intact. Sclerae nonicteric. Mucous membranes are moist. NECK: Without adenopathy or JVD. Right shoulder is quite sore. Ranging of motion causes increased pain and discomfort. LUNGS: Clear to auscultation without rhonchi. ABDOMEN: Nontender. Bowel sounds are present. MUSCULOSKELETAL: Without scoliosis, kyphosis or lordosis. Upper extremity muscle strength is judged to be 4+ on the right side and 5- on the left. Lower extremity, the patient has some pain and discomfort in the lower portion of her back in the right and left paraspinous muscles areas. IMPRESSION: 1. Myofascial pain treated with trigger point injections in the past. 2. Right shoulder pain status post steroid injections on 3 occasions x 3 weeks in the right shoulder. 3. Myofascial pain and right paraspinus muscle discomfort. 4. Right hip pain. 5. L4-L5 disc osteophyte complex with annular bulge. 6. Broad-based annular bulge, L4-L5 causing spinal stenosis. 7. L4-L5 posterior facet/ligamentum flavum hypertrophy. 8. Flattening of the anterior thecal sac with relative spinal stenosis. RECOMMENDATIONS: We discussed treatment options with the patient. At this juncture, we will continue with her medications. A script for her medications have been rewritten. The patient will continue with her medications. She has undergone steroid injection in the right shoulder on 3 occasions on 3 different weeks. Continues to have pain. Continues with activity to prevent decrease the possibility of development of ____ freezing of her shoulder. We renewed her script for Zanaflex, hydrocodone, amitriptyline, and Meloxicam. The patient will also use tramadol. We would like to thank you for letting us participate in her care. We hope she continues to improve. By: [id number]. Robby James MD /nt
== END ==
LOC: M.PC 04:21
DX: G89.29 Other chronic pain (principal); M19.011 Primary osteoarthritis, right shoulder; M54.5 Low back pain; I10 Essential (primary) hypertension; Z88.8 Allergy status to other drugs, medicaments and biological substances; Z91.09 Other allergy status, other than to drugs and biological substances; Z79.891 Long term (current) use of opiate analgesic

== ENCOUNTER → 2018-07-15 | Outpatient (CLI) | payer OTHER ==
--- NOTE | ~2018-07-15 | PAINCON ---
[address] [address] PAIN MANAGEMENT CONSULTATION Name: SON PALM Room: [facility] Leno.#: [id number] Admission: 07/15/18 Attend Phys: Bev James MD Discharge: Date of : 72 Report #: [id number] THIS REPORT FOR: //name// CC: Heber James DATE OF SERVICE: 07/15/2018 CHIEF COMPLAINT: Low back pain. HISTORY: The patient is a 48-year-old female who has been followed in the pain clinic because of chronic low back pain. She has undergone injections in her low back because of chronic back pain. These trigger point injections have been beneficial. Also, has had some problems with her shoulders. She has had injections into her shoulders. She has been told that she has scar tissue. She feels that her activity is somewhat limited because of the low back pain. She has not had back surgery. She is hopeful to undergo a trigger point injection today. These have been quite helpful in the past. She has continued to stretch. Rotates use of ice and heat. Pain is exacerbated by walking, sitting, standing, bending. She rates her pain as an 8/10 today. ALLERGIES: FENTANYL, SURGICAL GAGE. CURRENT MEDICATIONS: Elavil 75 mg at bedtime, baclofen 10 mg, tramadol 50 mg, Mobic 15 mg, Zanaflex 4 mg at bedtime, hydrocodone 5/325 one p.o. t.i.d. rotated with tramadol. PAIN CLINIC ASSESSMENT/PQRS: 1. The patient has some arthritic changes in her right shoulder. She is not being treated for rheumatoid arthritis. 2. Height 5 feet 7 inches, weight 249 pounds, BMI is 39 vitamins. 3. Vital Signs: Blood pressure 146/103, heart rate 90, respiratory rate 14, room air saturation 97%, temperature 98.6. 4. Pain intensity 8/10. 5. Fall history: The patient has not fallen in the last 3 months. 6. Blood thinner. The patient is not on a blood thinning medication. 7. Hypertension. The patient is being treated for hypertension. 8. Opioids greater than 6 weeks. The patient receives her medications from one source, the pain clinic. 9. Risk assessment tool, low for opioid use. 10. Functional assessment tool. 11. Recreational drug use: The patient denies. 12. Tobacco: The patient denies use of tobacco. 13. Alcohol: The patient denies use of alcoholic beverages. PHYSICAL EXAMINATION: [address] [place] [address] PAIN MANAGEMENT CONSULTATION Name: SON PALM Room: [facility]#: [id number] Admission: 07/15/18 Attend Phys: Bev James MD Discharge: Date of : 72 Report #: [id number] GENERAL: The patient is well-developed, well-nourished, somewhat obese white female, appears her stated age. She is alert and oriented x 3. Her affect is appropriate. Speech is fluent. HEENT: Normocephalic, atraumatic. Extraocular eye muscles intact. Sclerae nonicteric. Mucous membranes are moist. NECK: Without adenopathy or JVD. The patient has some pain and discomfort, which involves her shoulder on the right side. LUNGS: Clear to auscultation without rhonchi. ABDOMEN: Nontender. Bowel sounds present. MUSCULOSKELETAL: Without scoliosis, kyphosis or lordosis. EXTREMITIES: Upper extremity muscle strength judged to be 4+ on the right side and 5- on the left. Lower extremity, the patient has some pain and discomfort in the lower portion of her back. Pain is noted in the right as well as the left low back area. Right side is more problematic. Palpation in the left and right posterior superior iliac spine area near the gluteus marbella and latissimus dorsi do reproduce pain and discomfort, which is most disconcerting. She would like to proceed with an injection. IMPRESSION: 1. Myofascial pain treated with trigger point injection in the past which have been helpful. 2. Right shoulder pain, status post steroid injection on 3 occasions. 3. Myofascial pain, right paraspinous muscle discomfort. 4. Right hip pain. 5. Left L4-L5 disk osteophyte complex with annular bulge. 6. Broad-based annular bulge, L4-L5 causing spinal stenosis. 7. L4-L5 posterior facet ligamentum flavum hypertrophy. 8. Flattening of the anterior thecal sac with relative spinal stenosis. RECOMMENDATION: We discussed treatment options with the patient. Risks and benefits of injections of the low back area with local anesthetic and steroid were discussed. The patient has had trigger point injection in the past. They have been beneficial. She feels that she would like to proceed with another injection today. The pain is in the low back area. Palpation near the lower portion of her back, does reproduce her discomfort. She finds activities such as walking, sitting, standing more problematic. her heat and cold have been beneficial. She continues to use the medications of hydrocodone, tramadol in rotation. Feels that the meloxicam, tizanidine, amitriptyline 75 mg, baclofen are helpful. She would like to have these medications renewed. PROCEDURE NOTE: We discussed the risks and benefits. The patient was then taken to the procedure area. She was assisted in getting on the examination table. Her back was sterilely prepped with a chlorhexidine solution, which was allowed to dry. A 0.25% bupivacaine was infiltrated into this area. A 25-gauge needle was then advanced into the left posterior superior iliac spine area near the gluteus marbella. Aspiration was negative. Total of 8 mL of 0.5% [place] [address] PAIN MANAGEMENT CONSULTATION Name: SON PALM Room: [facility]#: [id number] Admission: 07/15/18 Attend Phys: Bev James MD Discharge: Date of : 72 Report #: [id number] bupivacaine and 40 mg Depo-Medrol and 20 mg triamcinolone was injected. The contralateral side was treated in a like fashion. The back patient's back had been sterilely prepped. A 0.25% bupivacaine was infiltrated. The patient tolerated the procedure well. A total of 40 mg Depo-Medrol with 20 mg triamcinolone was injected into this area with 8 mL of 0.5% bupivacaine. The patient remained in the pain clinic for an appropriate amount of time. She will follow up in the future as needed. We would like to thank you for letting us participate in her care. We hope she continues to improve. By: [id number]. MD GABI Cadena
== END | disposition home or self-care (01) ==
LOC: M.PC 02:23
DX: M79.18 Myalgia, other site (principal); G89.29 Other chronic pain; M51.26 Other intervertebral disc displacement, lumbar region; M48.061 Spinal stenosis, lumbar region without neurogenic claudication; M25.511 Pain in right shoulder; M25.551 Pain in right hip; I10 Essential (primary) hypertension; Z79.891 Long term (current) use of opiate analgesic; Z88.8 Allergy status to other drugs, medicaments and biological substances; Z79.82 Long term (current) use of aspirin; Z79.899 Other long term (current) drug therapy; Z98.890 Other specified postprocedural states

== ENCOUNTER → 2018-09-09 | Outpatient (CLI) | payer OTHER ==
[~2018-09-09] MED LIST changes: +HYDROCODON-ACE1 EAC7 PO
--- NOTE | ~2018-09-09 | PAINCON ---
[address] [address] PAIN MANAGEMENT CONSULTATION Name: SON PALM Room: [facility] MartiMelissa.#: [id number] Admission: 09/09/18 Attend Phys: Bev James MD Discharge: Date of : 72 Report #: [id number] THIS REPORT FOR: //name// CC: Heber James DATE OF SERVICE: 09/09/2018 CHIEF COMPLAINT: Here for medication renewal and trigger point injections to the back. FOLLOWUP HISTORY: The patient is a 48-year-old female who has been followed in the Pain Clinic because of chronic pain involving her low back area. Has pain in the left as well as in the right area. It rated as 8/10. She has undergone trigger point injections to the areas in the past and noticed that those have been quite helpful. She has returned today with the hope of undergoing an injection of the trigger points in the lower portion of her back to help control the pain. She has noted some knots on her hands. She feels that it might be arthritis or might be joint problems. She feels that the hydrocodone medication is beneficial. She continues to use tramadol. Notes that her pain is worse when she is standing for too long in one position. She has been taking her medication as prescribed. She has had no problems with the medications. Does continue to have some pain and discomfort in her right shoulder. ALLERGIES: FENTANYL/SURGICAL GAGE. CURRENT MEDICATIONS: Elavil 75 mg at bedtime, baclofen 10 mg, tramadol 50 mg, Mobic 15 mg, Zanaflex 4 mg at bedtime. PAIN CLINIC ASSESSMENT/PQRS: 1. The patient has some osteoarthritic change in her right shoulder. She is not been treated for rheumatoid arthritis. 2. Height 5 feet 7 inches, weight 258 pounds, BMI is 40. 3. Vital Signs: Blood pressure 117/63, heart rate 94, respiratory rate 18, room air saturation 96%, temperature 98.3. 4. Pain intensity, 10/02. 5. Fall history: The patient has not fallen in the last 3 months. 6. Blood thinner. The patient is not on a blood thinning medication. 7. Hypertension. The patient is being treated for hypertension. 8. Opioid greater than 6 weeks. The patient received her medications from one source, the Pain Clinic. 9. Risk assessment tool, low for opioid use. 10. Functional assessment tool. 11. Recreational drug use. The patient denies use of recreational drugs. 12. Tobacco: The patient [place] [address] PAIN MANAGEMENT CONSULTATION Name: SON PALM Room: [facility]#: [id number] Admission: 09/09/18 Attend Phys: Bev James MD Discharge: Date of : 72 Report #: [id number] 13. Alcohol: The patient denies use of alcoholic beverages. PHYSICAL EXAMINATION: GENERAL: The patient is a well-developed, well-nourished white female. Appears her stated age. She is alert and oriented x 3. Affect is appropriate, somewhat obese. HEENT: Normocephalic, atraumatic. Extraocular eye muscles intact. Sclerae nonicteric. Mucous membranes are moist. NECK: Without adenopathy or JVD. The patient has right shoulder, which is sore, status post surgery and has some limited range of motion because of the pain. LUNGS: Clear to auscultation without rhonchi. ABDOMEN: Nontender. Bowel sounds present. MUSCULOSKELETAL: Without significant scoliosis, kyphosis or lordosis. Upper extremity muscle strength is judged to be 4+ on the right side and 5- on the left. Lower extremity muscle strength is judged to be 5/5 for the major muscle groups in the lower extremity. The patient has a very sore lower back. Palpation in the area of the left posterior superior iliac spine near the gluteus marbella on the left and right, both cause the patient to jump from palpation of these trigger points. RECOMMENDATIONS: The patient has a history of myofascial pain. Injections in the low back area had been quite beneficial in the past. The patient would like to undergo an injection today to help curtail her pain. The patient has been taking her medication as prescribed. She has not had any problems with us over a number of months. At this point, we will have the patient come by monthly. She has been taking the medications as prescribed. There have been no complications. She will return to the Pain Clinic as before that if she needs. A script for 2 months of her medication of hydrocodone 5/325 one p.o. t.i.d. as well as tramadol have been rewritten. Hopefully, the patient will continue to improve. She will continue to stretch as well as her right shoulder will continue to improve as time goes on. She will keep her medications in a guarded area. She is aware that opioid medications can be problematic in certain patients. She also is aware pain medications over time can become less effective due to tolerance. PROCEDURE NOTE: The patient was taken to the procedure area. Her back was sterilely prepped with a Betadine solution in the L5 area and in the area near the posterior superior iliac spines. Palpation in this area reproduced pain in the left side. A 25-gauge needle was then used to identify the trigger point. The patient states this was the trigger point. Aspiration was negative. A total of 40 mg Depo-Medrol and 20 mg triamcinolone was injected into this side. The patient states that this did help with the pain in the trigger area. The contralateral right side was treated in a like fashion. This area had been sterilely prepped with a Betadine solution. A trigger point was noted in the area of the latissimus dorsi, posterior superior iliac spine [place] [address] PAIN MANAGEMENT CONSULTATION Name: SON PALM Room: [facility]#: [id number] Admission: 09/09/18 Attend Phys: Bev James MD Discharge: Date of : 72 Report #: [id number] marbella as it was on the contralateral side. A 25-gauge needle was then advanced. The patient states that this did reproduce her discomfort. Aspiration was negative. A total of 8 mL of 0.5% bupivacaine with 40 mg Depo-Medrol and 20 mg triamcinolone was injected. The patient will call us if she has any problems. Hopefully, things will continue to improve. We would like to thank you for letting us participate in her care. She will call us if she has any concerns. By: [id number]. Robby James MD /milagros
== END | disposition home or self-care (01) ==
LOC: M.PC 04:32
DX: M79.18 Myalgia, other site (principal); G89.29 Other chronic pain; I10 Essential (primary) hypertension; Z98.890 Other specified postprocedural states; Z79.899 Other long term (current) drug therapy; Z88.8 Allergy status to other drugs, medicaments and biological substances; Z79.82 Long term (current) use of aspirin

== ENCOUNTER → 2018-11-04 | Outpatient (CLI) | payer OTHER ==
--- NOTE | ~2018-11-04 | PAINCON ---
[address] [address] PAIN MANAGEMENT CONSULTATION Name: SON PALM [id number] Admission: 11/04/18 Attend Phys: Bev James MD Discharge: Date of : 72 Report #: [id number] THIS REPORT FOR: //name// CC: Heber James DATE OF SERVICE: 11/04/2018 CHIEF COMPLAINT: "Here for medication renewal and another trigger point injection in the back, those are really helpful." HISTORY: The patient is a 48-year-old female who has been followed in the pain clinic because of chronic pain. She has pain and discomfort in lower portion of her back. She notes that the pain is problematic and limits her ability to engage in activities because of this. She notes that the pain is worsened if she stays in one position for too long. She rates her pain as about 50% improved with her current medical regimen. She has had some pain and discomfort in her hands. There are some concerns of some lumps in her hand. She is scheduled to see a surgeon in a few days. Pain in her low back area is rated as an 8/10. She would like to proceed with another trigger point injection to the two main trigger point areas in the lower portion of her back. Denies any bowel or bladder dysfunction. ALLERGIES: FENTANYL AND SURGICAL GAGE. CURRENT MEDICATIONS: Elavil 75 mg at bedtime, baclofen 10 mg, tramadol 50 mg, Mobic 15 mg, Zanaflex 4 mg at bedtime, hydrocodone 5/325 one p.o. t.i.d., Ultram 50 mg 1 p.o. q.i.d. PAIN CLINIC ASSESSMENT AND PQRS: 1. The patient has some osteoarthritic changes involving her right shoulder. She is not being treated for rheumatoid arthritis. 2. Height 5 feet 7 inches, weight 298 pounds, BMI is 39.1. 3. Vital Signs: Blood pressure 121/74, heart rate 97, respiratory rate 16, room air saturation 97%, temperature 98.7. 4. Pain intensity 10/02. 5. Fall history: The patient has not fallen in the last 3 months. 6. Blood thinner. The patient is not on a blood thinning medication. 7. Hypertension. The patient is being treated for hypertension. 8. Opioids greater than 6 weeks. The [facility]. 9. Risk assessment tool, low for opioid use. 10. Functional assessment tool. 11. Recreational drug use. The patient denies use of recreational drugs. 12. Tobacco: The patient denies use of tobacco. 13. Alcohol. The patient [place] [address] PAIN MANAGEMENT CONSULTATION Name: SON PALM Room: [facility]#: [id number] Admission: 11/04/18 Attend Phys: Bev James MD Discharge: Date of : 72 Report #: [id number] PHYSICAL EXAMINATION: GENERAL: The patient is a well-developed, well-nourished white female. Appears her stated age. She is alert and oriented x 3. Her affect is appropriate, slightly obese. HEENT: Normocephalic, atraumatic. Extraocular eye muscles intact. Sclerae nonicteric. Mucous membranes are moist. NECK: Without adenopathy or JVD. The patient has some pain and discomfort in her right shoulder. She is status post surgery with some limited range of motion because of pain. LUNGS: Clear to auscultation without rhonchi or rales. ABDOMEN: Nontender. Bowel sounds present. MUSCULOSKELETAL: Without significant scoliosis, kyphosis or lordosis. EXTREMITIES: Upper extremity muscle strength judged to be 4+/5 on the right and 5-/5 on the left. The patient has some soreness in the low back area. Palpation in the area of the posterior superior iliac spine areas near the gluteus marbella and latissimus dorsi are both exquisitely sore and has trigger points, which reproduced her discomfort. Muscle strength in the lower extremities judged to be 5-/5 for the major muscle groups in the lower extremity. IMPRESSION: 1. Myofascial pain. 2. Hand pain. The patient to see a hand surgeon. 3. Right shoulder pain, status post surgery and injections in the past. 4. Myofascial pain, low back area in the right paraspinous areas. 5. Right hip pain. 6. L4-L5 disk osteophyte complex with annular bulge. 7. Broad-based annular bulge, L4-L5 causing spinal stenosis. 8. L4-L5 posterior facet/ligamentum flavum hypertrophy. 9. Flattening of the anterior thecal sac with relative spinal stenosis. RECOMMENDATIONS: We discussed treatment options with the patient. At this juncture, we will proceed with an injection into the trigger points in the low back area. The risks and benefits of the procedure were discussed. They include but are not limited to infection, worsening pain, no improvement in pain, nerve damage and the patient elects to proceed. PROCEDURE NOTE: The patient was taken to the procedure area. She was assisted in getting on the examination table. Her back was sterilely prepped with a chlorhexidine solution and allowed to dry. A 25-gauge needle was then advanced into the area of the left posterior superior iliac spine area near the gluteus marbella and latissimus dorsi. After the trigger point was identified, aspiration was negative. A total of 40 mg Depo-Medrol and 20 mg triamcinolone was injected. The patient tolerated that procedure well. The contralateral right side was treated in a like fashion. [place] [address] PAIN MANAGEMENT CONSULTATION Name: SON PALM Room: [facility]#: [id number] Admission: 11/04/18 Attend Phys: Bev James MD Discharge: Date of : 72 Report #: [id number] the area of the gluteus marbella latissimus dorsi and posterior superior iliac spine. Aspiration was negative. A 25-gauge needle was advanced into the area. The patient states this did reproduce her discomfort. A total of 40 mg Depo-Medrol and 20 mg triamcinolone was injected. Aspiration was negative. The patient tolerated the procedure well. She remained in the Pain Clinic for an appropriate amount of time. Pain was 7/10 at the time of discharge. She will follow up in the future as needed. We would like to thank you for letting us participate in her care. We hope she continues to improve. By: [id number]. Robby James MD /nt
== END | disposition home or self-care (01) ==
LOC: M.PC 05:24
DX: M79.18 Myalgia, other site (principal); M25.511 Pain in right shoulder; M25.551 Pain in right hip; I10 Essential (primary) hypertension; Z98.890 Other specified postprocedural states; Z88.8 Allergy status to other drugs, medicaments and biological substances; Z79.899 Other long term (current) drug therapy; Z79.891 Long term (current) use of opiate analgesic; Z79.82 Long term (current) use of aspirin

== ENCOUNTER → 2018-12-30 | Outpatient (CLI) | payer OTHER ==
--- NOTE | 2019-01-04 10:01 | PAINCON ---
[address] [address] PAIN MANAGEMENT CONSULTATION Name: SON PALM [facility] [id number] Admission: 12/30/18 Attend Phys: Bev James MD Discharge: Date of : 72 Report #: [id number] THIS REPORT FOR: //name// CC: Heber James DATE OF SERVICE: 12/30/2018 CHIEF COMPLAINT: Pain in the lower portion of the back, which is improved with injections in the past. HISTORY OF PRESENT ILLNESS: The patient is a 48-year-old female, who has been followed in the pain clinic. As you recall, she does have pain in her low back area. This is myofascial in nature. Trigger point injections in the past have been quite beneficial. She has returned today with the hopes of undergoing another trigger point injection to the two trigger point areas in her low back. She feels that her medications of meloxicam and tizanidine are helpful. She also is using tramadol to help with the pain. She has also been experiencing some pain in her hands. She has pain in both thumbs. She has noticed that the change in weather from warm to cold has caused some problems. Also has pain in her knees. As you recall, she has had a knee replacement. She would like to have renewal of her medications. These continue to help her with her pain control. ALLERGIES: FENTANYL AND SURGICAL GAGE. CURRENT MEDICATIONS: Elavil 75 mg at bedtime, baclofen 10 mg, tramadol 50 mg, Mobic 15 mg, Zanaflex 4 mg at bedtime, hydrocodone 5/325 one p.o. t.i.d. and Ultram 50 mg 1 p.o. q.i.d. PAIN CLINIC ASSESSMENT/PQRS: 1. The patient has some osteoarthritic changes involving her right shoulder. She is not being treated for rheumatoid arthritis. She does have a history of knee replacement. The patient is not being treated for rheumatoid arthritis. 2. Height 5 feet 7 inches, weight 254 pounds, BMI is 40. 3. Vital signs: Blood pressure 147/94, heart rate 97, respiratory rate 16, room air saturation is 96% and temperature 98.6. 4. Pain intensity is 8/10 with pain in the low back area. 5. Fall history: The patient has not fallen in the last 3 months. 6. Blood thinner. The patient is not on a blood thinning medication. 7. Hypertension. The patient is being treated for hypertension. 8. Opioids greater than 6 weeks. The patient received medication from [facility], the pain clinic. 9. Risk assessment tool, low for opioids. 10. [place] [address] PAIN MANAGEMENT CONSULTATION Name: SON PALM Room: [facility]#: [id number] Admission: 12/30/18 Attend Phys: Bev James MD Discharge: Date of : 72 Report #: [id number] 11. Recreational drug use: The patient denies. 12. Tobacco: The patient denies use of tobacco. 13. Alcohol. The patient denies alcoholic beverages. PHYSICAL EXAMINATION: GENERAL: The patient is a well-developed, well-nourished white female. Appears her stated age. She is alert and oriented x 3. Her affect is appropriate. Speech is fluent. HEENT: Normocephalic, atraumatic. Extraocular eye muscles are intact. Sclerae are nonicteric. Mucous membranes are moist. NECK: Without adenopathy or JVD. The patient has some pain and discomfort down in her hands, on both sides with pain and discomfort in her fingers. Has some pain and discomfort in her right shoulder, with some decreased range of motion. LUNGS: Clear to auscultation without rhonchi or rales. ABDOMEN: Nontender. Bowel sounds present. MUSCULOSKELETAL: Without significant scoliosis, kyphosis or lordosis. EXTREMITIES: Upper extremity muscle strength judged to be 4+/5 on the right and 5-/5 on the left. The patient has some pain and discomfort in the lower portion of her back. Palpation in the area of the posterior superior iliac spine on the left as well as the right, both cause the patient to pull away and vocalize because of pain and discomfort in these trigger point areas. IMPRESSION: 1. Hand pain. The patient is to see a hand surgeon. 2. Right shoulder pain status post surgery and a history of injection in the past. 3. Myofascial pain, low back area near the right and left paraspinous areas. 4. Right hip pain. 5. L4-L5 disk osteophyte complex with annular bulge. 6. Broad-based annular bulge at L4-L5 causing spinal stenosis. 7. L4-L5 posterior facet ligamentum flavum hypertrophy. 8. Flattening of the anterior thecal sac with relative spinal stenosis. RECOMMENDATIONS: We discussed treatment options. Risks and benefits of a trigger point injection were again discussed. They include but are not limited to infection, worsening of pain, no improvement in pain, increased muscle soreness, bleeding and nerve damage. The patient elects to proceed. PROCEDURE NOTE: The patient was taken to the procedure area. She was then assisted in getting on the examination table. The patient sat perpendicular to the table. A chair was placed under her feet for support. The patient leaned forward. Her back was sterilely prepped in the left as well as the right low back area. The left posterior superior iliac spine area near the gluteus marbella and latissimus dorsi were palpated. This reproduced the patient's discomfort. Her back was then anesthetized using a 25-gauge needle. A trigger point was noted in this left side. The patient [place] [address] PAIN MANAGEMENT CONSULTATION Name: SON PALM Room: [facility]#: [id number] Admission: 12/30/18 Attend Phys: Bev James MD Discharge: Date of : 72 Report #: [id number] pain. A 25-gauge needle was then advanced into the area of the trigger point. A total of 40 mg Depo-Medrol and 20 mg triamcinolone was injected on the left side. The contralateral right side was treated. This was the second trigger point. A 25-gauge needle was then advanced in the area of the left gluteus marbella and latissimus muscle. The patient states this reproduced her discomfort. A total of 8 mL of 0.5% bupivacaine and 40 mg Depo-Medrol with 20 mg was injected on the right side, similar to what was done on the left. The patient tolerated the procedure well. There were no complications. She remained in the pain clinic for an appropriate amount of time. She will follow up in the future as needed. A script for her pain medications have been rewritten. The patient is aware that opioid medications can become less effective over time. The patient was provided a script with meloxicam 15 mg 1 p.o. daily; tizanidine 4 mg 1 p.o. at bedtime; tramadol 50 mg 1 p.o. q.i.d., a total of 120 pills; hydrocodone 5/325 one p.o. t.i.d. The patient will call us if she has any concerns. We would like to thank you for letting us participate in her care. We hope she continues to improve. <ELECTRONICALLY SIGNED> By: Bev James MD 01/04/19 [id number]. Robby Jamse MD /nt
== END | disposition home or self-care (01) ==
LOC: M.PC 05:30
DX: M79.18 Myalgia, other site (principal); M54.5 Low back pain; M25.551 Pain in right hip; M25.78 Osteophyte, vertebrae; M24.28 Disorder of ligament, vertebrae; M48.061 Spinal stenosis, lumbar region without neurogenic claudication; I10 Essential (primary) hypertension; Z98.890 Other specified postprocedural states; Z79.899 Other long term (current) drug therapy; Z79.891 Long term (current) use of opiate analgesic; Z79.82 Long term (current) use of aspirin

== ENCOUNTER → 2019-02-24 | Outpatient (CLI) | payer OTHER ==
--- NOTE | ~2019-02-24 | PAINCON ---
[address] [address] PAIN MANAGEMENT CONSULTATION Name: SON PALM Room: [facility] Filomena#: [id number] Admission: 02/24/19 Attend Phys: Bev James MD Discharge: Date of : 72 Report #: [id number] THIS REPORT FOR: //name// CC: Bev Jones DATE OF SERVICE: 02/24/2019 CHIEF COMPLAINT: Continued back pain. HISTORY OF PRESENT ILLNESS: This is a 49-year-old female who has been followed in the pain clinic. As you recall, she has history of chronic pain. She has had bilateral knee replacements. Has some increased arthritic pain involving her left and right thumb. Had, had some injections in this area, but is not sure how much improvement she has gleaned from this. She has undergone epidural trigger point injections to her low back area. She finds that this is helpful. She has returned today and would like to proceed with injections in the low back area today. Notes that things are about 50% improved when she takes the injections in the low back area. She feels that it takes the edge off. She has had no complications from the procedures in the past. She feels that the meloxicam medication, tizanidine, amitriptyline, baclofen and tramadol all help to ease her discomfort, though it is still problematic. ALLERGIES: FENTANYL AND SURGICAL GAGE. CURRENT MEDICATIONS: Elavil 75 mg at bedtime, baclofen 10 mg, tramadol 50 mg, Mobic 15 mg, Zanaflex 4 mg at bedtime, hydrocodone 5/325 one p.o. t.i.d. and Ultram 50 mg 1 p.o. q.i.d. PAIN CLINIC ASSESSMENT AND PQRS: 1. The patient has pain involving her right shoulder. She has pain in the low back area. She does have some history of osteoarthritis and has had knee replacements. Is having pain and discomfort in the thumb area and has been told that, that is secondary to osteoarthritis. 2. Height 5 feet 4 inches, weight 257 pounds, BMI is 40. 3. Vital signs: Blood pressure 125/64, heart rate 89, respiratory rate 16, room air saturation is 95%, temperature 98.7. 4. Pain intensity 8/10. 5. Fall history: The patient has not fallen in the last 3 months. 6. Blood thinner. The patient is not on a blood thinning medication. 7. Hypertension. The patient is being treated for hypertension. 8. Opioids greater than 6 weeks. The patient received medication from [facility]. 9. Risk assessment tool, low for opioid use. 10. Functional assessment [place] [id number] PAIN MANAGEMENT CONSULTATION Name: NÉSTORSON ANN Room: [facility]#: [id number] Admission: 02/24/19 Attend Phys: Bev James MD Discharge: Date of : 72 Report #: [id number] 11. Recreational drug use: The patient denies. 12. Tobacco: The patient denies use of tobacco. 13. Alcohol. The patient denies use of alcoholic beverages. PHYSICAL EXAMINATION: GENERAL: The patient is a well-developed, well-nourished white female. Appears her stated age. She is alert and oriented x 3. Her affect is appropriate. Speech is fluent. HEENT: Normocephalic, atraumatic. Extraocular eye muscles intact. Sclerae nonicteric. Mucous membranes are moist. NECK: Without adenopathy. The patient does have some pain and discomfort in her shoulders. She is status post surgery in the right shoulder area. NECK: Without adenopathy or JVD. The patient does have some pain and soreness in her thumbs bilaterally. Palpation in the area of the thumb hypothenar area does cause significant amount of pain and discomfort. LUNGS: Clear to auscultation without rhonchi. ABDOMEN: Nontender. MUSCULOSKELETAL: Without significant scoliosis, kyphosis or lordosis. EXTREMITIES: Upper extremity muscle strength judged to be 4+/5 for the major muscle groups. 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 The patient has pain and discomfort in the left and right posterior superior iliac spine. Palpation in these areas does reveal a trigger point on both sides. IMPRESSION: 1. Right and left hand pain. The patient is being followed by her hand surgeon. 2. Right shoulder pain, status post surgery and history of injections in the past. 3. Myofascial pain in the lower portion of her back near the posterior superior iliac areas bilaterally. 4. History of L4-L5 disk osteophyte complex with annular bulge. 5. Broad-based annular bulge at L4-L5 causing spinal stenosis. 6. L4-L5 posterior facet, ligamentum flavum hypertrophy. 7. Flattening of the anterior thecal sac with relative spinal stenosis. RECOMMENDATIONS: We discussed treatment options with the patient. At this juncture, we will proceed with trigger point injections. She has found that these have been beneficial. She is aware that opioid medications can be less effective as time goes on. She has been on a regimen of meloxicam 15 mg daily, tizanidine 4 mg at bedtime. She feels that amitriptyline at bedtime is helpful as well. Feels that the baclofen medication can be helpful with the muscle spasms. She feels that tramadol is beneficial. At this juncture, she feels that the hydrocodone 5 mg 1 tablet t.i.d. is less effective. We will write for 100 tablets for the month. That will give her an additional 10 tablets for those days when life is more problematic. She will call us if she has any [address] [place] [address] PAIN MANAGEMENT CONSULTATION Name: SON PALM RUBY Room: [facility]#: [id number] Admission: 02/24/19 Attend Phys: Bev James MD Discharge: Date of : 72 Report #: [id number] concerns. We have discussed the risks and benefits of trigger point injections. They include but are not limited to infection, worsening of pain, no improvement in pain, nerve damage and bleeding. The patient elects to proceed. PROCEDURE NOTE: The patient was taken to the procedure area. She was then assisted in getting on the examination table. Her back was sterilely prepped with a chlorhexidine solution. The left and the right back area were sterilely prepped. A trigger point was noted in the left posterior superior iliac area near the gluteus marbella and latissimus dorsi. This trigger point was identified using a 25-gauge needle. The patient states this was the area of discomfort. Aspiration was negative. A total of 40 mg Depo-Medrol, 20 mg triamcinolone was injected with 8 mL of 0.5% bupivacaine. The patient tolerated that trigger point injection well. The contralateral right side was then identified. Trigger point was noted. A 25-gauge needle was then advanced into the area of the posterior superior iliac spine, latissimus dorsi and gluteus marbella. This was identified. Aspiration was negative. A 25-gauge needle was used to inject a total of 40 mg Depo-Medrol, 20 mg triamcinolone into this area. A total of 8 mL of 0.5% bupivacaine. The patient tolerated the procedure well. There were no complications. She remained in the pain clinic for an appropriate amount of time. Hopefully, the additional 10 tablets of hydrocodone 5 mg will provide her with additional pain control. By: [id number]. Robby James MD /milagros
== END | disposition home or self-care (01) ==
LOC: M.PC 07:51
DX: M79.18 Myalgia, other site (principal); G89.29 Other chronic pain; M51.26 Other intervertebral disc displacement, lumbar region; M48.061 Spinal stenosis, lumbar region without neurogenic claudication; M48.8X6 Other specified spondylopathies, lumbar region; M25.511 Pain in right shoulder; M79.641 Pain in right hand; M79.642 Pain in left hand; I10 Essential (primary) hypertension; Z98.890 Other specified postprocedural states; Z79.899 Other long term (current) drug therapy; Z96.653 Presence of artificial knee joint, bilateral; Z79.891 Long term (current) use of opiate analgesic; Z88.8 Allergy status to other drugs, medicaments and biological substances; Z79.82 Long term (current) use of aspirin

== ENCOUNTER → 2019-05-10 | Outpatient (CLI) | payer OTHER ==
--- NOTE | ~2019-05-10 | PAINCON ---
[address] [address] PAIN MANAGEMENT CONSULTATION Name: SON PALM RUBY Room: [facility].Romero.#: [id number] Admission: 05/10/19 Attend Phys: Bev James MD Discharge: Date of : 72 Report #: [id number] THIS REPORT FOR: //name// cc: Heber Garcia MD, Douglas W. MD ~ THIS REPORT FOR: //name// CC: Heber James DATE OF SERVICE: 05/10/2019 CHIEF COMPLAINT: Low back pain and "I had carpal tunnel surgery on my left hand." HISTORY: The patient is a 49-year-old female who has been followed in the pain clinic because of chronic pain involving her back. She returns today indicating that she is recovering from left hand surgery. She has carpal tunnel release. She states that they also removed a bone near her thumb. She has had bilateral knee replacements in the past. She rates her pain as an 8/10 at this point. Pain from the surgery is a 3/10. She feels that she is about 50% improved with her current medical regimen. We would like to continue with her medications. ALLERGIES: FENTANYL AND SURGICAL GAGE. CURRENT MEDICATIONS: Elavil 75 mg at bedtime, baclofen 10 mg, tramadol 50 mg, Mobic 15 mg, Zanaflex 4 mg, hydrocodone 5/325 mg t.i.d., and Ultram 50 mg 1 p.o. q.i.d. PAIN CLINIC ASSESSMENT AND PQRS: 1. The patient does have some pain and discomfort in her right shoulder. She does have history of osteoarthritis involving her knees which have been replaced. She has had some arthritic pain in her left hand and thumb area. 2. Height 5 feet 4 inches, weight 251 pounds, and BMI is 39.7. 3. Vital signs: Blood pressure is 136/84, heart rate 86, respiratory rate 16, room air saturation 94%, temperature 97.8, and saturation is 94%. 4. Pain intensity 8/10 for the back and 3/10 for the hand. 5. Fall history: The patient has not fallen in the last 3 months. 6. Blood thinner. The patient is not on a blood thinning medication. 7. Hypertension. The patient is being treated for hypertension. 8. Opioids greater than 6 weeks. The patient received medication from [facility]. 9. Risk assessment tool, low for opioid use. 10. Functional assessment tool has been reviewed. 11. Recreational drug use: [place] [address] PAIN MANAGEMENT CONSULTATION Name: SON PALM RUBY [id number] Admission: 05/10/19 Attend Phys: Bev James MD Discharge: Date of : 72 Report #: [id number] 12. Tobacco: The patient denies use of tobacco. 13. Alcohol. The patient denies use of alcoholic beverages. PHYSICAL EXAMINATION: GENERAL: The patient is a well-developed and well-nourished white female. She appears her stated age. She is alert and oriented x 3. Her affect is appropriate. Speech is fluent. HEENT: Normocephalic and atraumatic. Extraocular eye muscles intact. Sclerae nonicteric. Mucous membranes are moist. NECK: Without adenopathy or JVD. The patient has some pain and discomfort in her right shoulder. The patient has a wrap around her left hand and wrist area. LUNGS: Clear to auscultation without rhonchi. ABDOMEN: Nontender. MUSCULOSKELETAL: Without scoliosis, kyphosis, or lordosis. EXTREMITIES: Upper extremity muscle strength judged to be 4+/5 for the major muscle groups in the upper extremity. Decreased bat person strengths on the left secondary to recent surgery. Pain and discomfort in the left and right posterior iliac spine areas. Trigger points noted. IMPRESSION: 1. Right and left hand pain, status post left carpal tunnel surgery and surgery at the base of the thumb. 2. Right shoulder pain, status post surgery and history of injection in the past. 3. Myofascial pain in lower portion of the back and in the posterior superior iliac spine areas. 4. History of L4-L5 disk osteophyte complex with annular bulge. 5. Broad-based annular bulge at L4-L5 causing spinal stenosis. 6. L4-L5 posterior facet arthropathy. 7. Ligamentum flavum hypertrophy. 8. Flattening of the anterior thecal sac with relative spinal stenosis. RECOMMENDATIONS: We discussed treatment options with the patient. At this juncture, we will continue with her medications. She feels that her medications continue to be beneficial. She is taking medications as prescribed. She was prescribed a few Percocet medications from her surgeon because of the recent surgery. She is out of those medications. She will continue with the hydrocodone which she has been taking in the past. She will also continue with tramadol 50 mg 1 p.o. q.i.d. The patient will take Advil and will take amitriptyline 75 mg at bedtime. She will also continue with the muscle relaxant, tizanidine 4 mg p.r.n. The patient will continue with her nonsteroidal anti-inflammatory medication, Movantik. She will use baclofen as a muscle relaxant 10 mg p.o. t.i.[place] [address] PAIN MANAGEMENT CONSULTATION Name: CHERYL PALMBERLY RUBY Room: [facility]#: [id number] Admission: 05/10/19 Attend Phys: Bev James MD Discharge: Date of : 72 Report #: [id number] We would like to thank you for letting us participate in her care. We hope she continues to improve. By: [id number]. Robby James MD /nt
== END ==
LOC: M.PC 04-21 08:00
DX: M79.641 Pain in right hand (principal); M79.642 Pain in left hand; M25.511 Pain in right shoulder; M79.18 Myalgia, other site; M51.26 Other intervertebral disc displacement, lumbar region; M48.061 Spinal stenosis, lumbar region without neurogenic claudication; Z79.891 Long term (current) use of opiate analgesic; Z98.890 Other specified postprocedural states

== ENCOUNTER → 2019-07-05 | Outpatient (CLI) | payer OTHER ==
--- NOTE | 2019-07-19 22:11 | PAINCON ---
[address] [address] PAIN MANAGEMENT CONSULTATION Name: SON PALM RUBY Room: [facility].Romero.#: [id number] Admission: 07/05/19 Attend Phys: Bev James MD Discharge: Date of : 72 Report #: [id number] THIS REPORT FOR: //name// cc: Heber Garcia MD, Douglas W. MD ~ THIS REPORT FOR: //name// CC: Heber James DATE OF SERVICE: 07/05/2019 CHIEF COMPLAINT: Low back pain. HISTORY: The patient is a 49-year-old female who has been followed in the pain clinic because of chronic pain. Continues to have pain and discomfort in her back. She has had surgery on her left hand. She is recovering. She has had some pain in the area of the bone in her thumb. She has had bilateral knee replacements. At this point, she continues to have pain and discomfort. She has had some pain, which she describes as quite severe. States that it hurts so bad some days that she has difficulty getting out of bed. She has had injections in the past. The trigger point injections have been helpful. She has returned today for renewal of her medications. She feels that her medications at this point are about 50% helpful. She notes that walking, sitting, standing, climbing stairs, lifting, and bending can be problematic. She has used heat and cold to the affected areas. She has returned today and scores her pain as an 8/10. She would like to have her medications renewed. ALLERGIES: FENTANYL AND SURGICAL GAGE. CURRENT MEDICATIONS: Elavil 75 mg at bedtime, baclofen 10 mg, tramadol 50 mg, Mobic 15 mg, Zanaflex 4 mg, hydrocodone 5/325 one p.o. t.i.d., and Ultram 50 mg 1 p.o. q.i.d. PAIN CLINIC ASSESSMENT/PQRS: 1. The patient does have some pain and discomfort in her right shoulder. She does have some history of osteoarthritis involving her knees and has had knee replacements. Has some arthritic pain involving her left hand and thumb area. 2. Height 5 feet 7 inches, weight 248 pounds, BMI is 38.7. 3. Vital Signs: Blood pressure 132/78, heart rate 79, respiratory rate 16, room air saturation 96%, temperature is 96.9. 4. Pain intensity 8/10. 5. Fall history: The patient has not fallen in the last 3 months. 6. Blood thinner. The patient is not on a blood thinning medication. 7. Hypertension. The patient is being [place] [address] PAIN MANAGEMENT CONSULTATION Name: SON PALM Room: [facility]#: [id number] Admission: 07/05/19 Attend Phys: Bev James MD Discharge: Date of : 72 Report #: [id number] 8. Opioids greater than 6 weeks. The patient receives medication from the pain clinic. 9. Risk assessment tool, low for opioid use. 10. Functional assessment tool have been reviewed. 11. Recreational drug use. The patient denies. 12. Tobacco: The patient denies use of tobacco. 13. Alcohol: The patient denies use of alcoholic beverages. PHYSICAL EXAMINATION: GENERAL: The patient is a well-developed, well-nourished white female. She appears her stated age. She is alert and oriented x 3. Her affect is appropriate. Speech is fluent. HEENT: Normocephalic, atraumatic. Extraocular eye muscles intact. Sclerae nonicteric. Mucous membranes are moist. NECK: Without adenopathy. The patient has some pain and discomfort in her right shoulder. He has some wrist discomfort. LUNGS: Clear to auscultation without rhonchi. ABDOMEN: Nontender. MUSCULOSKELETAL: Without significant scoliosis, kyphosis, or lordosis. EXTREMITIES: Upper extremity muscle strength judged to be 4+/5 for the major muscle groups in the upper extremity. 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 Discomfort in the left and right posterior iliac spine areas with trigger points. IMPRESSION: 1. Right and left hand pain, status post left carpal tunnel surgery and surgery at the base of the thumb. 2. Right shoulder pain, status post surgery and history of injections in the past. 3. Myofascial pain in the lower portion of the back and posterior superior iliac spine areas. 4. History of L4-L5 disk osteophyte complex with annular bulge. 5. Broad-based annular bulge at L4-L5 causing spinal stenosis. 6. L4-L5 posterior disk facet arthropathy. 7. Ligamentum flavum hypertrophy. 8. Flattening of the anterior thecal sac with relative spinal stenosis. RECOMMENDATIONS: We discussed treatment options with the patient. At this juncture, we will continue with her medications. She feels medications continue to be beneficial. She has undergone trigger point injections for myofascial pain in the lower portion of her back. She has found that this has been helpful. At this juncture, we will consider possibility of injection in the future. Because of the COVID-19 and decreasing of one's immunity because of steroids, we will not proceed with an injection at this juncture. We may consider an injection when she returns. She still has some pain in her left hand. She continues to note some weakness. Hopefully, [place] [address] PAIN MANAGEMENT CONSULTATION Name: SON PALM RUBY [facility] [id number] Admission: 07/05/19 Attend Phys: Bev James MD Discharge: Date of : 72 Report #: [id number] improve as time progresses. A script for her medications of tramadol 50 mg 1 p.o. q.i.d. has been provided. The patient will also continue with the hydrocodone 5/325 one p.o. every 4-6 hours p.r.n. for pain. She will also continue with amitriptyline 75 mg at bedtime. She will continue with baclofen 10 mg for muscle spasms 1 p.o. t.i.d. is provided. The patient will use meloxicam 15 mg 1 p.o. at bedtime. She also has the option of her choosing Zanaflex 4 mg 1 p.o. daily. We would like to thank you for letting us participate in her care. We hope she continues to improve. <ELECTRONICALLY SIGNED> By: Bev James MD 07/19/19 2211 [id number]. MD GABI Cadena
== END ==
LOC: M.PC 05:14
DX: M51.26 Other intervertebral disc displacement, lumbar region (principal); M48.061 Spinal stenosis, lumbar region without neurogenic claudication; M12.88 Other specific arthropathies, not elsewhere classified, other specified site; M79.642 Pain in left hand; M79.643 Pain in unspecified hand; M25.511 Pain in right shoulder; M24.20 Disorder of ligament, unspecified site; M79.18 Myalgia, other site; Z48.811 Encounter for surgical aftercare following surgery on the nervous system; Z87.39 Personal history of other diseases of the musculoskeletal system and connective tissue; Z88.8 Allergy status to other drugs, medicaments and biological substances; Z79.899 Other long term (current) drug therapy

== ENCOUNTER → 2019-11-08 | Outpatient (CLI) | payer OTHER ==
--- NOTE | 2019-11-17 08:38 | PAINCON ---
[address] [address] PAIN MANAGEMENT CONSULTATION Name: NÉSTORSONORESTES BELTRAN Room: [facility] SUNIL Leno.#: [id number] Admission: 11/08/19 Attend Phys: Bev James MD Discharge: Date of : 72 Report #: [id number] THIS REPORT FOR: //name// cc: Kee Jones Robert M. DO ~ THIS REPORT FOR: //name// CC: Heber Jones DATE OF SERVICE: 11/08/2019 CHIEF COMPLAINT: Low back pain as well as pain in the hands. HISTORY: The patient is a 49-year-old female who has been followed in the Pain Clinic because of chronic pain. She oftentimes has persistent low back pain. She has undergone injections in the past and found that has been helpful. She rates her pain today as an 8/10. She is also having some pain in her right shoulder. She has had bilateral knee replacements. She feels that her medications are helpful. She rates her pain today as a 7/10. She is having this sharp shooting pain in both hands. Notes some sharp and shooting pain in her right hip. She feels overall that with her medications things are about 50% better. Activity such as standing and sometimes sitting can be problematic. She notes that use of her medication in conjunction with heat and cold can be beneficial as well. She has returned today with the hopes of renewing her medication. She has had no complications from its use. ALLERGIES: FENTANYL, SURGICAL GAGE. CURRENT MEDICATIONS: Elavil, hydrocodone 5/325 one p.o. every 4-6 hours, tramadol 50 mg one p.o. q 4-6 hours, vitamin D3, lisinopril/hydrochlorothiazide 20/12.5, Zoloft 50 mg, metoprolol 25 mg XL, aspirin 325 mg, vitamin B12 500 mcg. PAIN CLINIC ASSESSMENT/PQRS: 1. The patient has some pain and discomfort in her right shoulder. Also, has pain and discomfort in her right hip. Does have a history of osteoarthritis involving her knees and has had bilateral knee replacements. Has some arthritic changes in her left hand and right hand has been surgically treated. 2. Height 5 feet 7 inches, weight 236 pounds, BMI is 37.1. 3. Vital signs: Blood pressure 117/75, heart rate 72, respiratory rate 16, room air saturation is 96%, temperature 97.9. 4. Pain intensity, 7/10. 5. Fall history: The patient has not fallen in the last 3 months. 6. Blood thinner. The patient is not on a blood thinning medication. 7. Hypertension. The patient is [place] [address] PAIN MANAGEMENT CONSULTATION Name: SON PALM RUBY Room: [facility]#: [id number] Admission: 11/08/19 Attend Phys: Bev James MD Discharge: Date of : 72 Report #: [id number] 8. Opioids greater than 6 weeks. The patient [facility] from [facility]. 9. Risk assessment tool, low for opioid use. 10. Functional assessment tool reviewed. 11. Recreational drug use. The patient denies. 12. Tobacco: The patient denies. 13. Alcohol: The patient rarely drinks alcoholic beverages. PHYSICAL EXAMINATION: GENERAL: The patient is a well-developed, well-nourished white female. Appears her stated age. She is alert and oriented x 3. Her affect is appropriate. Speech is fluent. HEENT: Normocephalic, atraumatic. Extraocular eye muscles intact. Sclerae nonicteric. Mucous membranes are moist. The patient is wearing a mask. NECK: Without adenopathy. The patient has some pain and discomfort in the right shoulder. Has some decreased range of motion in her right shoulder. LUNGS: Clear to auscultation. ABDOMEN: Nontender. HEART: Regular rate. MUSCULOSKELETAL: The patient is without significant scoliosis, kyphosis or lordosis. Her upper extremity muscle strength is 4+/5 for the major muscle groups in the upper extremity on the right and in the right shoulder. 2. 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 3. History of myofascial pain and trigger points in the low back area. IMPRESSION: 1. Continued hand discomfort, status post carpal tunnel surgery ____. 2. Right shoulder pain, status post injections in the past. 3. Myofascial pain, lower back and posterior superior iliac area. 4. History of L4-L5 disk osteophyte complex with annular bulge. 5. Broad-based annular bulge at L4-L5 causing spinal stenosis. 6. L4-L5 posterior disk facet arthropathy. 7. Ligamentum flavum hypertrophy. 8. Flattening of the anterior thecal sac with relative sac causing relative spinal stenosis. RECOMMENDATIONS: We discussed treatment options with the patient. At this juncture, we will continue with her medications. A script for her medications of [place] has been provided. The patient is aware that opioid medications can become less effective as time goes on. She feels that the use of these medications are helpful. She has found that baclofen is helpful with muscle spasms. Feels that the amitriptyline medication is helpful with pain and improved sleep. She has been using meloxicam. She is not having any GI complaints. Because of this nonsteroidal anti-inflammatory medication, she feels that the tizanidine muscle relaxant is beneficial as well. She does use [address] [place] [address] PAIN MANAGEMENT CONSULTATION Name: SON PALM [id number] Admission: 11/08/19 Attend Phys: Bev James MD Discharge: Date of : 72 Report #: [id number] tramadol pain medication to help relieve her discomfort. A script for all of these medications have been provided. They have been sent to her pharmacy. She will call us if she has any concerns. We would like to thank you for letting us participate in her care. We hope she continues to improve. <ELECTRONICALLY SIGNED> By: Bev James MD 11/17/19 0838 [id number]. Robby James MD /nt
== END ==
LOC: M.PC 08:04
PROVIDERS: ATTEND Anesthesiology Pain Medicine
DX: M51.26 Other intervertebral disc displacement, lumbar region (principal); M47.816 Spondylosis without myelopathy or radiculopathy, lumbar region; M79.641 Pain in right hand; M25.511 Pain in right shoulder; M79.10 Myalgia, unspecified site; Z87.39 Personal history of other diseases of the musculoskeletal system and connective tissue; Z88.8 Allergy status to other drugs, medicaments and biological substances; Z79.899 Other long term (current) drug therapy

== ENCOUNTER → 2020-01-03 | Outpatient (CLI) | payer OTHER ==
--- NOTE | 2020-01-26 14:42 | PAINCON ---
[address] [address] PAIN MANAGEMENT CONSULTATION Name: NÉSTORSONORESTES BELTRAN Room: [facility].Romero.#: [id number] Admission: 01/03/20 Attend Phys: Bev James MD Discharge: Date of : 72 Report #: [id number] THIS REPORT FOR: //name// cc: Kee Jones Robert M. DO ~ CC: Dr. Heber Jones DO DATE OF SERVICE: 01/03/2020 FOLLOWUP COMPLAINT: Low back pain and discomfort in the hands. HISTORY: The patient is a 49-year-old female who has been followed in the pain clinic. She has persistent back pain. She has had trigger points in her low back area. She also has some pain in her shoulder. She has had bilateral knee replacements. She has shooting pains, which are problematic in both hands. Has some discomfort in her right hip. Feels that her medications continue to be helpful. They provide at least 50% improvement in her pain. Overall, things are going reasonably well. She has returned to the pain clinic with hopes of having her medications renewed. When the weather has changed, she has noted increased pain and discomfort with standing, sitting and activities of daily living. She notes that heat, cold, and medications are beneficial in helping to control the pain. ALLERGIES: FENTANYL, SURGICAL GAGE. CURRENT MEDICATIONS: Elavil, hydrocodone 5/325 one p.o. every 4-6 hours, tramadol 50 mg one p.o. q. 4-6 hours, vitamin D3, lisinopril/hydrochlorothiazide 20/12.5, Zoloft 50 mg, metoprolol 25 mg XL, aspirin 325 mg, vitamin B12 500 mcg. PAIN CLINIC ASSESSMENT AND PQRS: 1. The patient has pain and discomfort in her right shoulder and also has pain and discomfort in her right hip and low back area. She has a history of osteoarthritis involving her knees and has had bilateral knee replacements. Has some arthritic changes in her left right hand and has had surgery on these on her hand. 2. Height 5 feet 7 inches, weight 225 pounds, BMI is 35. 3. Vital signs: Blood pressure 107/57, heart rate 73, respiratory rate 18, room air saturation 96%, temperature is 97.8. 4. Pain intensity, 8/10. 5. Fall history: The patient has not fallen in the last 3 months. 6. Blood thinner. The patient is not on a blood thinning medication. 7. Hypertension. The patient is being treated for hypertension. 8. Opioids greater than 6 weeks. The [place] [address] PAIN MANAGEMENT CONSULTATION Name: SON PALM Room: [facility]#: [id number] Admission: 01/03/20 Attend Phys: Bev James MD Discharge: Date of : 72 Report #: [id number] source, the pain clinic. 9. Risk assessment tool, low for opioid use. 10. Functional assessment tool reviewed. 11. Recreational drug use: The patient denies. 12. Tobacco: The patient denies. 13. Alcohol: The patient rarely drinks alcoholic beverages. PHYSICAL EXAMINATION: GENERAL: The patient is a well-developed, well-nourished white female, appears her stated age. She is alert and oriented x 3. Her affect is appropriate. Speech is fluent. HEENT: Normocephalic, atraumatic. Extraocular eye muscles are intact. The patient is wearing a facial covering. NECK: Without adenopathy. The patient has some discomfort in the right shoulder. Has some decreased range of motion in her right shoulder. LUNGS: Clear to auscultation. ABDOMEN: Nontender. HEART: Regular rate. MUSCULOSKELETAL: The patient without significant scoliosis, kyphosis or lordosis. Upper extremity muscle strength judged to be 4+/5 for the major muscle groups of the upper extremity on the right and notes some discomfort in the right shoulder. 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 IMPRESSION: 1. Continued hand discomfort status post carpal tunnel surgeries. 2. Right shoulder pain, status post injections in the past. 3. Myofascial pain in lower back and posterior superior iliac spine area. 4. History of L4-L5 disk osteophyte complex with annular bulge. 5. Broad-based annular bulge at L4-L5 causing spinal stenosis. 6. L4-L5 posterior disk facet arthropathy. 7. Lung Ligamentum flavum hypertrophy. 8. Flattening of the anterior thecal sac with relative sac causing spinal stenosis. RECOMMENDATIONS: We discussed treatment options with the patient. At this juncture, we will continue with her medications. She feels medications continue to be helpful. At this juncture, a script for her medications has been rewritten. She will continue with the amitriptyline 75 mg at bedtime. She will also continue with the muscle relaxant, baclofen to help with muscle spasms. She will continue with hydrocodone 5/325, total of 100 tablets per month. She will take these help control the pain. She will also continue with meloxicam 15 mg 1 p.o. daily. She will monitor her GI tract. She will use tizanidine at times when she is not using baclofen to help with the muscle spasms as well. The patient will use tramadol 50 mg at bedtime to help with pain control, [place] [address] PAIN MANAGEMENT CONSULTATION Name: SON PALM Room: [facility]#: [id number] Admission: 01/03/20 Attend Phys: Bev James MD Discharge: Date of : 72 Report #: [id number] of 120 tablets have been provided. The patient is aware that opioid medications can become less effective as time goes on. An option for a Narcan medication has been provided. We would like to thank you for letting us participate in her care. We hope she continues to improve. <ELECTRONICALLY SIGNED> By: Bev James MD 01/26/20 1442 [id number] 0151N. Robby James MD /nt
== END ==
LOC: M.PC 08:03
PROVIDERS: ATTEND Anesthesiology Pain Medicine
DX: M54.5 Low back pain (principal); I10 Essential (primary) hypertension; Z79.899 Other long term (current) drug therapy

== ENCOUNTER → 2020-03-06 | Outpatient (CLI) | payer OTHER | LOC: M.PC 08:56 | PROVIDERS: ATTEND Anesthesiology Pain Medicine | DX: M25.511 Pain in right shoulder (principal); M79.642 Pain in left hand; M54.5 Low back pain; M25.551 Pain in right hip; M51.36 Other intervertebral disc degeneration, lumbar region; M47.816 Spondylosis without myelopathy or radiculopathy, lumbar region; M89.38 Hypertrophy of bone, other site; Z79.899 Other long term (current) drug therapy ==

== ENCOUNTER → 2020-05-31 | Outpatient (CLI) | payer OTHER | LOC: M.PC 10:50 | PROVIDERS: ATTEND Anesthesiology Pain Medicine | DX: M51.36 Other intervertebral disc degeneration, lumbar region (principal); M25.511 Pain in right shoulder; M47.816 Spondylosis without myelopathy or radiculopathy, lumbar region; M79.10 Myalgia, unspecified site; M89.38 Hypertrophy of bone, other site; Z88.8 Allergy status to other drugs, medicaments and biological substances; Z79.899 Other long term (current) drug therapy ==

== ENCOUNTER → 2020-08-14 | Outpatient (CLI) | payer OTHER | LOC: M.PC 07-26 08:30 | PROVIDERS: ATTEND Anesthesiology Pain Medicine | DX: M47.816 Spondylosis without myelopathy or radiculopathy, lumbar region (principal); M25.511 Pain in right shoulder; M79.18 Myalgia, other site; M48.061 Spinal stenosis, lumbar region without neurogenic claudication; M25.78 Osteophyte, vertebrae; M53.86 Other specified dorsopathies, lumbar region; M24.28 Disorder of ligament, vertebrae; Z98.890 Other specified postprocedural states ==